=== PATIENT | male | born 1945 | race Caucasian/White ===

== ENCOUNTER → 2017-06-21 07:31 | Outpatient (CLI) | payer OTHER, SELFPAY ==
--- NOTE | 2017-06-21 07:34 | US_ITS ---
STUDY: ABDOMINAL ULTRASOUND - RIGHT UPPER QUADRANT REASON FOR VISIT: Male, 71 years old. 3 month history of abdominal pain. TECHNIQUE: Ultrasound evaluation of the right upper quadrant was performed with real-time and static herron-scale imaging. TECHNICAL QUALITY: Adequate. COMPARISON: None. FINDINGS: Liver: The liver is mildly enlarged and measures 18.7 cm. There is increased echogenicity consistent with fatty infiltration. The bile ducts are within normal limits. There is hepatic color flow. The direction of portal flow is hepatopetal. There is no demonstrated mass lesion. Gallbladder: Normal distended gallbladder. The gallbladder wall measures 3.2 mm. There is a positive sonographic Pham's sign. There is no pericholecystic fluid. There are multiple echogenic structures within the gallbladder, consistent with multiple gallstones. Sludge is seen within the gallbladder lumen. Common Bile Duct (C.B.D.): The common bile duct measures 5.4 mm. Pancreas: Normal size of the head, body and tail of the pancreas. There is normal echogenicity of the pancreas. There is no demonstrated pancreatic mass or cyst. Right Kidney: Normal size of the right kidney. The right kidney measures 12.4 cm x 5.3 cm x 5.5 cm. Normal renal cortex. The right cortex measures 1.9 cm. There is no demonstrated renal mass or cyst. There is no right hydronephrosis. US/Abdomen Limited IMPRESSION: Mild hepatomegaly with fatty infiltration of the liver. Sludge and gallstones seen in the gallbladder lumen. Electronically Signed: Richard Greenberg MD at 10:04 EDT Tel [phone], Service support ,
== END ==
PROVIDERS: Family Provider Family Medicine; PCP Family Medicine; Visit Provider Nurse Practitioner Family
DX: R10.11 Right upper quadrant pain (principal)
CPT/HCPCS: 76705

== ENCOUNTER 2017-06-22 16:50 | Inpatient (IN) | payer OTHER, SELFPAY ==
[2017-06-22 16:51] VITALS: BP 162/83; PULSE 96; RESP 16; TEMP 37.7; O2SAT 93; BMI 31.7
[2017-06-22 17:41] LABS: Squamous Epithelial Cells - UA 0 SEEN /hpf (0-5); White Blood Cells 0 SEEN /hpf (0-5)
[2017-06-22 17:50] LABS: Absolute Lymphocyte Count 1.15 X10^3/ul (0.83-4.51); Basophil# 0.02 X10^3/uL; Basophil% 0.1 % (0-1); Eosinophil# 0.06 X10^3/uL; Eosinophils% 0.4 % (0-5); Hematocrit 46.6 % (40-54); Lymphocyte # 1.15 X10^3/ul (4.0); Lymphocyte % 7.5 % (19-41); Mean Corp Hgb Conc 34.3 g/gl (32-36); Mean Corpuscular Volume 90.3 fL (80-94); Mean Platelet Vol. 10.1 fl (6.2-12.0); Monocyte# 1.11 X10^3/uL; Monocyte% 7.2 % (0-10); Neutrophil # 13.04 X10^3/uL (2.7-7.7); Neutrophil % 84.7 % (47-70); Platelet Count 229 K/mm3 (150-450); RBC Distribution Width SD 42.6 fl (35.1-43.9); Red Blood Count 5.16 M/mm3 (4.6-6.2); White Blood Count 15.4 K/mm3 (4.4-11.0)
[2017-06-22 17:52] LABS: Anion Gap 8 (5-15); BUN 10 mg/dL (7-18); BUN/Creat Ratio 10.2 RATIO (10-20); Calcium,Total 8.3 mg/dL (8.5-10.1); Chloride 99 mmol/L (98-107); Creatinine, Serum 0.98 mg/dL (0.70-1.30); EST Glomerular Filtration Rate 80 mL/min (>60); Est Glom Filt Rate - Afr Amer 97 mL/min (>60); Glucose 118 mg/dL (74-106); Potassium 4.1 mmol/L (3.5-5.1); Sodium Level 135 mmol/L (136-145)
[2017-06-22 17:54] LABS: Color, Urine Yellow (Yellow); Glucose, Dipstick NEGATIVE (Normal); Urine Bilirubin Dipstick 1 mg/dL (Negative); Urine Clarity Clear (Clear)
--- NOTE | 2017-06-22 17:54 | US_ITS ---
STUDY: ABDOMINAL ULTRASOUND - RIGHT UPPER QUADRANT REASON FOR VISIT: Male, 71 years old. Right upper quadrant pain. TECHNIQUE: Ultrasound evaluation of the right upper quadrant was performed with real-time and static herron-scale imaging. TECHNICAL QUALITY: Adequate. COMPARISON: June 21, 2017. FINDINGS: Liver: The liver measures 18.3 cm. There is increased echogenicity consistent with fatty infiltration. There is focal sparing adjacent to the gallbladder fossa. The bile ducts are within normal limits. There is hepatic color flow. The direction of portal flow is hepatopetal. There is no demonstrated mass lesion. Gallbladder: Normal distended gallbladder. The gallbladder wall measures 6 mm. There is a positive sonographic Pham's sign. There is pericholecystic fluid. There are multiple echogenic structures within the gallbladder, consistent with multiple gallstones. Common Bile Duct (C.B.D.): The common bile duct measures 6 mm. Pancreas: Normal size of the head, body and tail of the pancreas. There is normal echogenicity of the pancreas. There is no demonstrated pancreatic mass or cyst. Right Kidney: Normal size of the right kidney. The right kidney measures 13.4 cm. Normal renal cortex. The right cortex measures 1.5 cm. There is 1.6 cm cyst. There is no right hydronephrosis. US/Abdomen Limited IMPRESSION: Cholecystitis. Multiple stones with wall thickening and pericholecystic fluid. No biliary dilatation. Electronically Signed: Marko Soto MD at 19:33 EDT , Service support ,
[2017-06-22 17:55] LABS: Ketone-Dipstick 5 mg/dl (Negative); Nitrite-Dipstick Negative (Negative); Occult Blood-Urine 50 /ul (Negative); Protein-Dipstick 30 mg/dl (Negative); Specific Gravity, Urine 1.015 (1.002-1.030); Urine Urobilinogen 12 mg/dl (Normal); Urine pH 6.5 (5.0 - 8.0)
[2017-06-22 17:56] LABS: POSITIVE COUNT NO; POSITIVE DIFFERENTIAL NO; POSITIVE MORPHOLOGY NO
[2017-06-22 17:56] LABS: Leukocyte Esterase-Dipstick 25 /ul (Negative); Red Blood Cells-Urine 0-5 SEEN /hpf (0-5)
[2017-06-22 17:57] LABS: Amorphous Sediment 1+; Bacteria 1+ /hpf (None Seen); Mucous, Urine RARE /hpf (<or=2+)
[2017-06-22] MEDS: Ondansetron 4 MG/2 ML Vial IV (18:12)
[2017-06-22] MEDS: 0.9% Normal Saline 1,000 ML 1000 ML IV (18:12)
[2017-06-22] MEDS: Morphine 4 MG/ML Syringe IV (18:13)
--- NOTE | 2017-06-22 18:32 | ED.DCSUM_ITS ---
- ER Visit Summary Date of Service: 06/22/17 Chief Complaint: Abdominal pain History of Present Illness: The patient is a 71 M presents to the emergency department with abdominal pain. The patient is otherwise healthy. He states that over the past 3 days, has been having some intermittent abdominal pain. It got worse Tuesday night into Tuesday morning. He states that woke him from sleep. It was a sharp stabbing sensation throughout his abdomen worse in his right upper quadrant. He went to [facility]. He states they did a CAT scan which was unremarkable. She was discharged with analgesics. He followed up with his primary care physician later that day. He was scheduled an ultrasound yesterday. He states this was completed. Since then, the pain is worsened. It is now gone into his right upper shoulder. He has began to have fevers and vomiting. He also admits to chills and sweats. He does have history of prior appendectomy when he was 15 years old. He denies any abdominal surgery. He does not take any daily medications. Physical Examination: Vital signs reviewed General: Well-nourished, well-developed Head: Normocephalic, atraumatic Eyes: Pupils equal and reactive, extraocular muscles intact Neck, supple, no lymphadenopathy Heart: Regular rate and rhythm Respiratory: No distress, clear bilaterally Abdomen: Soft, tender in the right upper quadrant with positive Pham sign, nondistended, no peritoneal signs Back: Nontender Extremities: Nontender, no edema, no cords Skin: Normal color no rash Neuro: Alert and oriented, no focal or lateralizing deficits Test Results: [] Emergency Department Course and Treatment: The patient has symptoms that are consistent with acute cholecystitis. IV was established. Patient was given analgesics with marked improvement of his pain. Screening labs do demonstrate leukocytosis and elevated bilirubin. I did repeat his ultrasound which does show acute cholecystitis. The patient was covered with IV antibiotics. Patient was discussed with Dr. Mason who will evaluate the patient here in the emergency department. Treatment Plan: [] Disposition: Admission Impression:. Acute cholecystitis This note was generated with [employer] dictation software. It may contain incorrect words, spelling, and punctuation that were not noted in review of the chart prior to signing ED Disposition - Plan for ED Patient: Chief Complaint: Abd Pain Referrals: Ulices Mahoney [Primary Care Provider] -
[2017-06-22 19:38] LABS: AST(SGOT) 25 U/L (15-37); Alanine Aminotransfer ALT/SGPT 34 U/L (16-61); Albumin, Serum 3.3 g/dL (3.2-5.0); Alkaline Phosphatase 61 U/L (45-117); Globulin 4.7 g/dL (2.2-4.2); Lipase 50 U/L (73-393)
[2017-06-22 19:41] VITALS: BP 143/86; PULSE 84; RESP 16; O2SAT 94
--- NOTE | 2017-06-22 19:42 | EKG12_ITS ---
Test Reason : PRE-OP Blood Pressure : / mmHG Vent. Rate : 081 BPM Atrial Rate : 081 BPM P-R Int : 154 ms QRS Dur : 104 ms QT Int : 384 ms P-R-T Axes : 014 -23 -03 degrees QTc Int : 446 ms Normal sinus rhythm Leftward axis Poor R wave progression Confirmed by MUNDO STILL, ABELARDO ([id number]), state editor KARLEY LEONARDO ([id number]) on 06/28/2017 3:10:48 PM Referred By: Ulices Mahoney Confirmed By:ABELARDO FLOWER MD
--- NOTE | 2017-06-22 19:45 | RAD_ITS ---
STUDY: X-RAY CHEST REASON FOR EXAM: Male, 71 years old. Abdominal pain TECHNIQUE: Single AP portable view of the chest. COMPARISON: None. FINDINGS: Left lower lung increased densities. There is pleural fibrotic scarring of the left costophrenic angle. There is moderate cardiac enlargement. Normal mediastinum and gama. Normal visualized pulmonary arteries. Normal visualized aortic arch and descending thoracic aorta. Normal visualized thoracic spine. Normal visualized ribs, clavicles, and shoulders. There is no demonstrated abnormality of the visualized soft tissue structures of the upper abdomen. RAD/Chest 1 View (Portable) IMPRESSION: Left lower lung atelectasis or infiltrate. Cardiac enlargement. Electronically Signed: Marko Soto MD at 20:36 EDT , Service support ,
--- NOTE | 2017-06-22 20:34 | PCM.HP.STD ---
Problem List (1) Acute calculous cholecystitis Status: Acute History of Present Illness Date of Admission: 06/22/17 The patient is a 71 year old M who presents to the emergency room now with a four-day history of severe right upper quadrant pain. The pain started on Tuesday evening. He presented to [facility] at 3:30 in the morning on Tuesday. A CT scan was obtained demonstrating inflammation/panniculitis of undetermined etiology. The patient was given oral narcotics and told to follow-up with primary care. That same day he saw Lito Mahoney. A ultrasound was ordered as an outpatient the [facility] then 2 days later today for 2017. The final report Straits fatty infiltration of the liver. Normal bile ducts. Gallbladder wall is markedly thickened 6 mm. Positive sonographic Pham sign. Pericholecystic fluid. Gallstones. Common bile duct is 6 mm. Addition the patient has leukocytosis 15.4 thousand white count. Hemoglobin 16 and hematocrit 46.6. Platelet count 229,000. Scant left shift with 84.7% neutrophils. total bilirubin is elevated to 2.4 with a direct bilirubin 0.8. Analysis abnormal with urobilinogen and oxide esterase and occult blood and ketones. Specific gravity is 1.015. The patient has not been able to move his bowels since Tuesday. He is essentially been on clear liquids now for 3 days. He developed a fever today of at least 99-100 at home. To complicate features he has had a very long-term umbilical hernia with very thin skin and erythema of the skin. He has had a remote appendectomy performed via an open technique Vision the patient has a brother who at age 60 had colon cancer. The patient has never had a screening colonoscopy. Past Medical History Allergies No Known Allergies Allergy (Verified 06/22/17 16:57) Home Medications: Ambulatory Orders Medication Instructions Recorded Ondansetron HCl [Zofran] 4 mg PO Q6H PRN PRN 06/22/17 Oxycodone [Oxyir] 5 mg PO Q6H PRN PRN 06/22/17 Surgical History: appendectomy, total knee arthroplasty, tonsillectomy Lives: Spouse/ Significant Other Smoking Status: Never smoker Tobacco Use: Non-smoker Alcohol: None - *Family History Sibling History Items: - - Brother had colon cancer at age 60 Review of Systems Constitutional: Reports: Anorexia, Chills, Fever, Night Sweats Eyes: Denies: Blurred vision HEENT: Denies: Difficulty Hearing Cardiovascular: Denies: Chest Pain, Claudication Respiratory: Denies: Cough Gastrointestinal: Reports: Abdominal Pain, Constipation, Vomiting Genitourinary: Denies: Dysuria Musculoskeletal: Denies: Arm Pain Skin: Denies: Dryness Neurological: Denies: Balance problems Psychiatric: Denies: Anxiety Endocrine: Denies: Change in Body Habitus Hematologic/ Lymphatic: Denies: Adenopathy VTE Information - Inpt Only VTE Present on Admission: No Patient Problems: Active and Suspected Problems Acute calculous cholecystitis (Acute) - Physical Exam General: Alert, Oriented x3, Cooperative, No apparent distress HEENT: Atraumatic Oral: Moist Mucosa Neck: Supple Lungs: - - Lung apices are clear, diminished breath sounds in the bases Cardiovascular: Regular rate, Regular Rhythm Abdomen: Bowel Sounds Not Present, Distended, Tender - Tender in the right upper quadrant, - - Overweight very large umbilical hernia with thinning of the skin and erythema. Fixed 2 cm diameter fascial defect. Partially reducible Extremities: No clubbing Skin: No rashes Musculoskeletal: No Tenderness to Palpation of Joints or Extremities Lymphatic: No Cervical, Supraclavicular, or Inguinal Adenopathy Neurological: Cranial nerves II-XII grossly intact Psych/Mental Status: Normal Affect Vital Signs Temp Pulse Resp BP Pulse Ox 99.8 F H 84 16 143/86 H 94 06/22/17 16:51 06/22/17 19:41 06/22/17 19:41 06/22/17 19:41 06/22/17 19:41 Oxygen Delivery Method Room Air Weight: 202 lb 9.677 oz Body Mass Index (BMI) 31.7 Laboratory Tests Past 24 Hrs 06/22/17 06/22/17 06/22/17 17:18 17:18 17:18 WBC 15.4 H RBC 5.16 Hgb 16.0 Hct 46.6 MCV 90.3 MCH 31.0 MCHC 34.3 RDW 13.0 RDW Differential 42.6 Plt Count 229 MPV 10.1 Immature Gran % (Auto) 0.100 Neut % (Auto) 84.7 H Lymph % (Auto) 7.5 L [place] % (Auto) 7.2 Eos % (Auto) 0.4 Baso % (Auto) 0.1 Absolute Neuts (auto) 13.0 H Absolute Lymphs (auto) 1.15 Total Counted Not Reportable Sodium 135 L Potassium 4.1 Chloride 99 Carbon Dioxide 28.0 Anion Gap 8 BUN 10 Creatinine 0.98 Estim Creat Clear Calc 63.70 Est GFR (MDRD) Af Amer 97 Est GFR (MDRD) Non-Af 80 BUN/Creatinine Ratio 10.2 Glucose 118 H Calcium 8.3 L Total Bilirubin 2.40 H Direct Bilirubin 0.80 H AST 25 ALT 34 Alkaline Phosphatase 61 Total Protein 8.0 Albumin 3.3 Globulin 4.7 H Lipase 50 L Urine Color Urine Clarity Urine pH Ur Specific [place] Urine Protein Urine Glucose (UA) Urine Ketones Urine Occult Blood Urine Nitrite Urine Bilirubin Urine Urobilinogen Ur Leukocyte Esterase Urine RBC Urine WBC Ur Squamous Epith Cells Amorphous Sediment Urine Bacteria Urine Mucus 06/22/17 17:22 WBC RBC Hgb Hct MCV MCH MCHC RDW RDW Differential Plt Count MPV Immature Gran % (Auto) Neut % (Auto) Lymph % (Auto) [place] % (Auto) Eos % (Auto) Baso % (Auto) Absolute Neuts (auto) Absolute Lymphs (auto) Total Counted Sodium Potassium Chloride Carbon Dioxide Anion Gap BUN Creatinine Estim Creat Clear Calc Est GFR (MDRD) Af Amer Est GFR (MDRD) Non-Af BUN/Creatinine Ratio Glucose Calcium Total Bilirubin Direct Bilirubin AST ALT Alkaline Phosphatase Total Protein Albumin Globulin Lipase Urine Color Yellow Urine Clarity Clear Urine pH 6.5 Ur Specific [place] 1.015 Urine Protein 30 H Urine Glucose (UA) NEGATIVE Urine Ketones 5 H Urine Occult Blood 50 H Urine Nitrite Negative Urine Bilirubin 1 H Urine Urobilinogen 12 H Ur Leukocyte Esterase 25 H Urine RBC 0-5 SEEN Urine WBC 0 SEEN Ur Squamous Epith Cells 0 SEEN Amorphous Sediment 1+ Urine Bacteria 1+ Urine Mucus RARE Assessment/Plan Active and Suspected Problems Acute calculous cholecystitis (Acute) 71-year-old gentleman who is now 4 days into acute cholecystitis cholelithiasis. He now is demonstrating signs with fever and leukocytosis and abdominal pain and abnormal liver function tests. In addition he has a significant umbilical hernia thinning of the skin and affixed fascial defect. Family history of colon cancer no previous screening 4 days ago had a CT scan demonstrating inflammation of the omentum. This point I believe that he requires urgent hospitalization initiation of IV fluid and IV antibiotics. After discussion with Dr. Facundo Woodruff it was recommended that we not proceed with emergency surgery tonight. I have discussed with nurse supervisor metalizing and at this moment a definitive surgery time for tomorrow cannot be estimated. I have vigorously encouraged the patient to ambulate and work on incentive spirometer. We will treat with antibiotics. I discussed with patient and family members a planned attempt at left scopic cholecystectomy with selective cholangiography. They are aware of the technique, benefits, risks and alternatives. They are aware that possible conversion to an open technique or a partial cholecystectomy may have to be pursued. They are aware of possible intraoperative drainage. I anticipate a supraumbilical incision to avoid the complicated umbilical hernia currently present. I am recommending future repair of his umbilical hernia and future colonoscopy. Sae Mason M.D., F.A.C.S.
[2017-06-22 20:36] VITALS: BP 138/79; PULSE 78; RESP 18; O2SAT 98
[2017-06-22 22:07] VITALS: BP 140/69; PULSE 81; RESP 16; TEMP 37.6; O2SAT 94; BMI 32.1; BMI 32.2
[2017-06-22 22:08] VITALS: BP 153/71
[2017-06-22] MEDS: Lactated Ringers 1,000 ML 100 ML IV (22:43)
[2017-06-22 23:01] VITALS: BMI 32.1
[2017-06-23] VITALS (9 sets, daily range): BP systolic 114–145; BP diastolic 63–75; PULSE 69–80; RESP 16–18; TEMP 36.4–37.2; O2SAT 92–95; BMI 32.2
[2017-06-23] MEDS: Piperacil/Tazobactam 3.375 GM/50 ML ML IV ×3 (05:06→22:06)
[2017-06-23 05:29] LABS: Absolute Neutrophil Count 11.3 X10^3/uL (2.0-7.7); Basophil# 0.02 X10^3/uL; Basophil% 0.1 % (0-1); Eosinophil# 0.12 X10^3/uL; Eosinophils% 0.9 % (0-5); Hematocrit 41.1 % (40-54); Lymphocyte % 6.6 % (19-41); Mean Corp Hgb Conc 34.1 g/gl (32-36); Mean Corpuscular Hgb 30.9 pg (27.0-32.0); Mean Corpuscular Volume 90.7 fL (80-94); Mean Platelet Vol. 9.8 fl (6.2-12.0); Monocyte# 1.25 X10^3/uL; Monocyte% 9.2 % (0-10); Neutrophil # 11.27 X10^3/uL (2.7-7.7); Neutrophil % 82.9 % (47-70); Platelet Count 209 K/mm3 (150-450); RBC Distribution Width CV 12.7 % (11.6-14.6); RBC Distribution Width SD 41.9 fl (35.1-43.9); Red Blood Count 4.53 M/mm3 (4.6-6.2); White Blood Count 13.6 K/mm3 (4.4-11.0)
[2017-06-23 05:33] LABS: POSITIVE COUNT NO; POSITIVE DIFFERENTIAL NO; POSITIVE MORPHOLOGY NO
[2017-06-23 05:45] LABS: ALB/GLOB Ratio 0.7 RATIO (0.9-2.4); AST(SGOT) 23 U/L (15-37); Alanine Aminotransfer ALT/SGPT 29 U/L (16-61); Albumin, Serum 2.7 g/dL (3.2-5.0); Alkaline Phosphatase 56 U/L (45-117); Amylase 16 U/L (25-115); Anion Gap 7 (5-15); BUN 10 mg/dL (7-18); BUN/Creat Ratio 11.4 RATIO (10-20); Calcium,Total 7.8 mg/dL (8.5-10.1); Chloride 103 mmol/L (98-107); Creatinine, Serum 0.88 mg/dL (0.70-1.30); EST Glomerular Filtration Rate 91 mL/min (>60); Est Glom Filt Rate - Afr Amer 110 mL/min (>60); Estimated Creatinine Clearance 70.94 ml/min; Globulin 3.9 g/dL (2.2-4.2); Glucose 105 mg/dL (74-106); Potassium 4.1 mmol/L (3.5-5.1); Protein, Total 6.6 g/dL (6.4-8.2); Sodium Level 138 mmol/L (136-145)
--- NOTE | 2017-06-23 05:51 | PCM.PN.SRG ---
Patient Problems: Active and Suspected Problems Acute calculous cholecystitis (Acute) Subjective: Mild fever over night. Abdominal pain is improved. No flatus, no stool - Physical Exam Lungs: - - diminished in bases, tender RUQ Vital Signs Temp Pulse Resp BP Pulse Ox 98.9 F 74 16 143/70 H 94 06/23/17 03:30 06/23/17 03:30 06/23/17 03:30 06/23/17 03:30 06/23/17 03:30 Oxygen Delivery Method Room Air Weight: 205 lb 7.533 oz Body Mass Index (BMI) 32.1 Intake and Output for Last 24 Hours 06/21/17 06/22/17 06/23/17 23:59 23:59 23:59 Intake Total 154.6 / 154.6 540.3 / 540.3 Balance 154.6 / 154.6 540.3 / 540.3 Laboratory Tests Past 24 Hrs 06/23/17 06/23/17 05:05 05:05 WBC 13.6 H RBC 4.53 L Hgb 14.0 Hct 41.1 MCV 90.7 MCH 30.9 MCHC 34.1 RDW 12.7 RDW Differential 41.9 Plt Count 209 MPV 9.8 Immature Gran % (Auto) 0.300 Neut % (Auto) 82.9 H Lymph % (Auto) 6.6 L [place] % (Auto) 9.2 Eos % (Auto) 0.9 Baso % (Auto) 0.1 Absolute Neuts (auto) 11.3 H Absolute Lymphs (auto) 0.90 Total Counted Not Reportable Sodium 138 Potassium 4.1 Chloride 103 Carbon Dioxide 28.0 Anion Gap 7 BUN 10 Creatinine 0.88 Estim Creat Clear Calc 70.94 Est GFR (MDRD) Af Amer 110 Est GFR (MDRD) Non-Af 91 BUN/Creatinine Ratio 11.4 Glucose 105 Calcium 7.8 L Total Bilirubin 2.90 H AST 23 ALT 29 Alkaline Phosphatase 56 Total Protein 6.6 Albumin 2.7 L Globulin 3.9 Albumin/Globulin Ratio 0.7 L Amylase 16 L Medical Necessity - Tobacco Use Smoking Status: Never smoker Tobacco Use: Non-smoker Assessment/Plan Active and Suspected Problems Acute calculous cholecystitis (Acute) Plan OR today pending schedule Pt higher risk Pt has not ambulated. Will reorder and I have again instructed the pt on the importance of this.
--- NOTE | 2017-06-23 07:30 | GALL_PTH ---
PATIENT: GEORGIA MCKEON LOC: PCU U#:[id number] AGE/SX: 71/M ROOM: [facility] RE06/22/[address]: Dr. Sae Mason MD : [id number] BED: 1 DIS: 06/24/2017 SPEC #: [id number] RECD: 06/24/17 09:09 STATUS: EVELYN RETyra #: [id number] MAKI: 06/23/17 07:[address]: Sae Mason DEPT: SURGICAL PATHOLOGY RECD BY: Lalo Posada ENTERED: 06/24/17 10:56 SP TYPE: ROSALINDA TIM DR: Ulices Mahoney Tissues: Gallbladder, NOS Procedures: Surgery Specimen Level III HEADER OPERATION: Laparoscopic cholecystectomy with intraoperative cholangiogram PRE-OP DIAGNOSIS: Acute calculus cholecystitis TISSUE SUBMITTED: Gallbladder MICROSCOPIC DIAGNOSIS Gallbladder, cholecystectomy: Acute and chronic cholecystitis with mucosal ulceration and granulation. AM:nicole 06/27/17 MICROSCOPIC DESCRIPTION Slides are reviewed. GROSS DESCRIPTION Received is one container labeled with the patient's name and designated gallbladder. The specimen consists of a gallbladder measuring 11 cm in length and 5 cm in diameter. The serosal surface is congested and hemorrhagic. The gallbladder is filled with multiple blood clots. The mucosa is congested and hemorrhagic without any mass lesion. Sections of the gallbladder wall reveal congested and hemorrhagic cut surfaces. No stones are identified in the container or in the gallbladder. The gallbladder wall measures up to 1 cm in thickness. Also present in the container is a detached piece of adipose tissue consistent with omentum measuring 8 x 3 x 1 cm. Sections reveal focally congested cut surfaces. No mass lesion is identified. [employer] Instructor sections from the gallbladder and the cystic duct are submitted in three cassettes as follows: 1 & 2 ? gallbladder and cystic duct, 3 ? adipose tissue. / SJ:nicole 06/24/17 TC:2 CPT: 69649
[2017-06-23] MEDS: Morphine 2 MG/ML Syringe IV ×2 (09:18→20:03)
[2017-06-23] MEDS: Lactated Ringers 1,000 ML 100 ML IV ×2 (09:18→22:06)
--- NOTE | 2017-06-23 10:28 | CASEMGMT ---
CM Initial Assessment: Patient's daughter, Carmina Schneider, present for interview. Patient has several friends/family at the bedside visiting. Home: Patient lives with and family in a two story home. HHS/Aides: Never. DME: Denies DME needs prior to admission. Pharmacy: [facility] in [place] Providers: PCP - Ulices Guaman. Specialists: None, though he plans to see Dr. Bowles for pulmonology. Adv. Directives: Denies having LW/POA. Refuses assistance at this time. CM will continue to follow for effective discharge planning. No needs identified at this time.
--- NOTE | 2017-06-23 10:55 | NURSING ---
Patient ambulated 2 large laps around the hallways this morning 2 times.
--- NOTE | 2017-06-23 14:11 | PCM.DC.GS ---
Discharge Diet: Light diet - advance as tolerated - if you have questions about your diet instructions, please talk to you doctor. Discharge Activity: May Not Drive - for 1 week or while taking narcotic pain medicine. May shower in (days): 1 Lifting Restrictions: 10 pounds Call your doctor if your incision/area has: Continuous Slow Oozing, Sudden Increased Bleeding, Increased Pain/ Swelling, Increased Redness, Foul Smelling Discharge Call your doctor if you observe: Fever of 101 or Higher Suture Line Care: Avoid Pulling/Pushing, Avoid Pinching/Bending Additional Dressing/Incision Instructions:: Change or remove dressing in 4 days. Leave steri-strips in place for 1 week. You may shower on Tuesday. Leave the plastic dressings in place and shower over them. The drain site dressing you may remove and then shower and then cover that small wound with a Band-Aid Additional Instructions: Augmentin has been added to your home going medications please Allergies/Adverse Reactions: Allergies No Known Allergies Allergy (Verified 06/22/17 16:57) Medications to take at Discharge Garlic [Odor Free Garlic] 100 mg PO 06/22/17 Ondansetron HCl [Zofran] 4 mg PO Q6H PRN PRN 06/22/17 Oxycodone [Oxyir] 5 mg PO Q6H PRN PRN 06/22/17 Amoxicillin/Potassium Clav [Augmentin 875-125 Tablet] 1 ea PO BID #6 tab 06/24/17 The following prescriptions were given: Amoxicillin/Potassium Clav [Augmentin 875-125 Tablet] 1 ea PO BID #6 tab Primary Care Physician: Ulices Mahoney [Primary Care Provider] - Please Follow Up With: Sae Mason MD - [phone] When: Call to make an appointment to be seen in about 10 days.
[2017-06-23] MEDS: Bupivacaine Mpf 0.5% 30 ML VIAL (16:20)
--- NOTE | 2017-06-23 16:27 | OP.PCM_ITS ---
Problem List (1) Acute calculous cholecystitis Status: Acute Report of Operation Date of Procedure: 06/23/17 Pre-Operative Diagnosis: Severe acute cholecystitis cholelithiasis with delayed presentation Post-Operative Diagnosis: Same plus hydrops of the gallbladder Surgery/Procedure Performed:: Laparoscopic cholecystectomy Description of Surgical Findings:: Timeout and informed consent was obtained. 71-year-old gent was taken out from placement table underwent general endotracheal intubation and anesthesia.. He is already on therapeutic Zosyn because of severe infection. His abdomen was sterilely prepped and draped. 0.5% Marcaine was used as a local anesthetic. The patient has a very large umbilical hernia with thin skin. I elected not to try to deal with that at the same setting of acute infection. I made a transverse incision superior to the umbilicus sharp dissection was carried down through the substance tissue the linea alba was identified a small incision was created varies needle inserted saline drop test performed the abdomen was insufflated CO2 to pressure 15 mmHg mercury pressure. Ara laparoscope inserted after 12 m trocar insertion no evidence of any trocar injuries. The abdomen is inspected. There is distention of small bowel consistent with ileus. There was dramatic caking of omentum completely obliterating access to the gallbladder. There is no significant free fluid immediately identified. Five-minute trochars were placed in the epigastrium right upper quadrant and right lateral abdomen. First step was to try to dissect free the omentum that was adherent to the liver and gallbladder. I used electrified scissors to incise the omentum off the dome of the gallbladder then I was able to using sharp and blunt dissection free the omentum from the gallbladder. Gallbladder was markedly thickened. Densely adherent during efforts made to raise the gallbladder small opening was made and it was evident that the patient had drops of the gallbladder with clear bile. There was some purulence. No stones spillage. The gallbladder was then progressively elevated. I had put a liver retractor in to assist with visualization by holding the duodenal sweep inferiorly as I continued to use blunt and aqua dissection close to the infundibular area of the gallbladder. Finding and tediously I was able to dissect that free. At this point I elected to take a dome down approach. I incised the gallbladder circumferentially at the gallbladder peritoneum edge with the liver and then using a combination of Hope dissection cautery dissection and blunt dissection I gradually teased the gallbladder free from the liver. I then utilized the liver retractor to hold the liver up will continue to mobilize the gallbladder distally. In so doing I then was able to identify the cystic artery. I was able to identify this clearly I placed 2 Hem- o-alvaro clips proximally prior to transecting it. This now left knee only with the cystic duct. It is of note that I did not attempt a cholangiogram as the bile was white and consistent with cystic duct obstruction. There was a phrygian cap to the gallbladder and then right below that was an area that I could secure. I felt that this was free from the portal structures. I then tediously placed a 0 Vicryl Endoloop and immediately at the base of the very gallbladder I secured the Endoloop snuggly. I felt that I had very good positioning of that. I then transected the lower half of the infundibular area of the gallbladder leaving a slight cough so as to not disrupt my suture. There was no spillage. I was then able to put the gallbladder within a retrieval bag. There was some adherent necrotic omentum that I dissected free hemostasis obtained with electrocautery and that specimen was also retrieved. The right upper quadrant then was irrigated and aspirated free of excess fluid. Because of the blunt and cautery dissection of the liver I elected to leave a EMELINA drain. Dissection utilized today was very extensive involving mobilized the omentum off the gallbladder and then more mobilized to the gallbladder from the liver bed. I was able to place the gallbladder in a retrieval bag and then 6 and I placed the EMELINA drain 15 round through the right lateral abdominal port site. The drain was trimmed to length. Secured with 3-0 nylon. The gallbladder was then exited at the supraumbilical site I did have to enlarge that incision to the dramatic size and thickness of the gallbladder. The gallbladder and extra portion of omentum was successfully removed. The abdomen was then allowed to deflate of CO2. The fascia superior the umbilicus was approximated with multiple simple and [id number] sutures of 0 Nurolon. Skin edges were approximated with interrupted 4-0 Monocryl. Steri-Strips Telfa OpSite dressings applied. Sponge instrument and needle counts were reported to the surgeon to be correct. Tomato blood loss was 200 cc. Specimens include the gallbladder and a portion of the adherent omentum. No apparent complications. This was a operation of marked increased complexity and duration taking 2-1/2 hours of operating time. Patient was taken to the recovery area in satisfactory condition. Sae Mason M.D., F.A.C.S. Type of Anesthesia:: General Anesthesiologist: Michelle Alva
[2017-06-23] MEDS: 0.9% NaCl Peripheral Flush Adult/Peds IV (20:03)
--- NOTE | 2017-06-24 01:47 | NURSING ---
Patient has been up to the restroom 3 times - ambulated well. Patient felt steady and did not have any increased pain. Patient up to television and sink. However, declined sitting in the chair. Family present in room and patient did not want to take away from the family. Patient did sit at side of the bed for 15 minutes.
[2017-06-24 03:30] VITALS: BP 130/64; PULSE 63; RESP 16; TEMP 36.5; O2SAT 96; BMI 32.2
[2017-06-24 03:38] VITALS: O2SAT 96
--- NOTE | 2017-06-24 03:51 | NURSING ---
Patient ambulated in halls at this time with aide. Pt tolerated well. Surgical sites c/d/i. Pt rates pain at this time as a 1. Denies any need for PRN pain management at this time.
[2017-06-24] MEDS: Piperacil/Tazobactam 3.375 GM/50 ML ML IV ×2 (05:35→13:02)
--- NOTE | 2017-06-24 05:51 | PCM.PN.SRG ---
Patient Problems: Active and Suspected Problems Acute calculous cholecystitis (Acute) Subjective: Patient is 1 day status post very challenging laparoscopic cholecystectomy. He has not had flatus but he feels rumbling in his belly. His pain is only a 1-2. He denies nausea. - Physical Exam General: Alert, Oriented x3, Cooperative, No apparent distress Lungs: Clear to auscultation Abdomen: Bowel Sounds Present, Soft, Non Tender, - - EMELINA drain serosanguineous drainage. No evidence of biliary discharge Vital Signs Temp Pulse Resp BP Pulse Ox 97.7 F L 63 16 130/64 H 96 06/24/17 03:30 06/24/17 03:30 06/24/17 03:30 06/24/17 03:30 06/24/17 03:38 Oxygen Flow Rate (L/min) 2 Oxygen Delivery Method Room Air Weight: 205 lb 7.533 oz Body Mass Index (BMI) 32.1 Intake and Output for Last 24 Hours 06/22/17 06/23/17 06/24/17 23:59 23:59 23:59 Intake Total 154.6 / 154.6 3650.3 / 3650.3 Output Total 60 / 60 Balance 154.6 / 154.6 3590.3 / 3590.3 -20 / 20 Laboratory Tests Past 24 Hrs 06/24/17 06/24/17 05:26 05:26 WBC Pending RBC Pending Hgb Pending Hct Pending MCV Pending MCH Pending MCHC Pending RDW Pending RDW Differential Pending Plt Count Pending Neut % (Auto) Pending Absolute Neuts (auto) Pending Total Counted Pending Sodium Pending Potassium Pending Chloride Pending Carbon Dioxide Pending Anion Gap Pending BUN Pending Creatinine Pending Est GFR (MDRD) Af Amer Pending Est GFR (MDRD) Non-Af Pending BUN/Creatinine Ratio Pending Glucose Pending Calcium Pending Total Bilirubin Pending Direct Bilirubin Pending AST Pending ALT Pending Alkaline Phosphatase Pending Total Protein Pending Albumin Pending Medical Necessity - Tobacco Use Smoking Status: Never smoker Tobacco Use: Non-smoker Assessment/Plan Active and Suspected Problems Acute calculous cholecystitis (Acute) EMELINA drain was removed for him today. We will initiate clear liquids and advance as tolerated. I am awaiting laboratory. Possible discharge later today
[2017-06-24 06:08] LABS: AST(SGOT) 51 U/L (15-37); Alanine Aminotransfer ALT/SGPT 47 U/L (16-61); Albumin, Serum 2.4 g/dL (3.2-5.0); Alkaline Phosphatase 60 U/L (45-117); Anion Gap 7 (5-15); BUN 13 mg/dL (7-18); Bilirubin, Direct 0.39 mg/dL (0.00-0.30); Calcium,Total 8.2 mg/dL (8.5-10.1); Chloride 106 mmol/L (98-107); Creatinine, Serum 0.76 mg/dL (0.70-1.30); EST Glomerular Filtration Rate 106 mL/min (>60); Est Glom Filt Rate - Afr Amer 129 mL/min (>60); Estimated Creatinine Clearance 62.43 ml/min; Globulin 4.2 g/dL (2.2-4.2); Glucose 154 mg/dL (74-106); Protein, Total 6.6 g/dL (6.4-8.2); Sodium Level 140 mmol/L (136-145)
[2017-06-24 06:14] LABS: Basophil# 0.01 X10^3/uL; Basophil% 0.1 % (0-1); Hematocrit 39.1 % (40-54); Hemoglobin 13.2 g/dl (13.0-16.5); Lymphocyte % 4.6 % (19-41); Mean Corp Hgb Conc 33.8 g/gl (32-36); Mean Corpuscular Hgb 30.5 pg (27.0-32.0); Mean Corpuscular Volume 90.3 fL (80-94); Mean Platelet Vol. 9.7 fl (6.2-12.0); Monocyte# 0.56 X10^3/uL; Monocyte% 4.3 % (0-10); Neutrophil # 11.95 X10^3/uL (2.7-7.7); Neutrophil % 90.8 % (47-70); Platelet Count 229 K/mm3 (150-450); RBC Distribution Width CV 12.6 % (11.6-14.6); RBC Distribution Width SD 41.2 fl (35.1-43.9); Red Blood Count 4.33 M/mm3 (4.6-6.2); White Blood Count 13.1 K/mm3 (4.4-11.0)
[2017-06-24 06:16] LABS: Differential Indicated SCAN CRITERIA MET; POSITIVE COUNT NO; POSITIVE DIFFERENTIAL YES; POSITIVE MORPHOLOGY NO
[2017-06-24] MEDS: Lactated Ringers 1,000 ML 15 ML IV (06:19)
[2017-06-24 07:00] LABS: Differential Comment SCANNED
[2017-06-24 07:20] VITALS: BMI 32.2
[2017-06-24 07:30] VITALS: BP 119/62; PULSE 63; RESP 18; TEMP 36.6; O2SAT 92
[2017-06-24 12:58] VITALS: BP 133/73; PULSE 63; RESP 18; TEMP 36.6; O2SAT 92
== END 2017-06-24 18:16 | disposition home or self-care (01) | DRG 418 ==
LOC: ED 18:05 → PCU 21:43
PROVIDERS: Admitting Provider Surgery; Emergency Provider Emergency Medicine; Family Provider Nurse Practitioner Family; PCP Nurse Practitioner Family; Visit Provider Surgery
PROC: 0FT44ZZ Resection of Gallbladder, Percutaneous Endoscopic Approach (ICD-10-PCS; CPT 47610; principal; 2017-06-23 07:10)
DX: K80.00 Calculus of gallbladder with acute cholecystitis without obstruction (principal); K82.1 Hydrops of gallbladder; K42.9 Umbilical hernia without obstruction or gangrene
CPT/HCPCS: 36415; 71045; 76705; 80048; 80053; 80076; 81001; 82150; 83690; 85025; 86850; 86900; 87070; 87075; 87077; 87186; 87205; 88304; 93005; 97802; 99282; J7030; J7050; J7120; A4216; J2405

== ENCOUNTER 2017-09-06 05:42 | Day surgery (SDC) | payer OTHER, SELFPAY ==
[2017-09-06] VITALS (9 sets, daily range): BP systolic 117–148; BP diastolic 75–93; PULSE 59–68; RESP 16–18; TEMP 36.4–36.7; O2SAT 91–97
--- NOTE | 2017-09-06 06:56 | PCM.OPRPT ---
Problem List (1) Screening for intestinal cancer Status: Acute Report of Operation Date of Procedure: 09/06/17 Pre-Operative Diagnosis: Screening for intestinal malignancy Post-Operative Diagnosis: Extraordinarily elongated tortuous colon. sigmoid diverticulosis Surgery/Procedure Performed:: Colonoscopy Description of Surgical Findings:: Timeout and informed consent was obtained. 69-year-old gent was taken to the endoscopy suite. He was placed in left lateral decubitus position. Throughout the procedure total of 100 mg Remeron 5 mg of Versed were given as intravenous sedation. Digital rectal exam performed. Lax anal tone. 2+ smooth prostate. Flexible colonoscope inserted the rectum advanced through a very tortuous sigmoid colon extensively involved with diverticulosis. The scope was then carefully advanced to the splenic flexure but I could not advance past the splenic flexure so then I completely withdrew the scope. Reinserted the scope and started the procedure again. This time I could cross the splenic flexure by placing the patient supine was able to advanced through the transverse colon and with some transabdominal pressure into the ascending colon. I ended up just shy of what I thought was ileocecal valve however could not advance the scope further as I felt it was too much tension. Took photographs of the what I felt was a cecal area. The scope was carefully withdrawn. Bowel prep was adequate there was still some liquid stool that had to be aspirated. The scope was withdrawn through a elongated transverse descending and sigmoid colon. No polyps identified. The scope was retroflexed within the rectum anorectal verge inspected no gross hemorrhoidal changes. Excess fluid and air was aspirated free the procedure was completed with patient tolerating it well. Sigmoid diverticulosis. Very elongated tortuous colon Patient has not had a previous screening colonoscopy. Next colonoscopy recommended in 10 years. Cc: Lito Mason M.D., F.A.C.S. Scope was inserted 0628. The cecum was reached at 0647. Procedure was completed 0654. Type of Anesthesia:: IV Sedation
== END 2017-09-06 08:03 | disposition home or self-care (01) ==
LOC: EN 05:44 → AC 05:45
PROVIDERS: Family Provider Nurse Practitioner Family; PCP Nurse Practitioner Family; Visit Provider Surgery
PROC: 0DJD8ZZ Inspection of Lower Intestinal Tract, Via Natural or Artificial Opening Endoscopic (ICD-10-PCS; CPT 45378; principal; 2017-09-06 06:25)
DX: Z12.11 Encounter for screening for malignant neoplasm of colon (principal); K57.30 Diverticulosis of large intestine without perforation or abscess without bleeding; Q43.8 Other specified congenital malformations of intestine; K40.90 Unilateral inguinal hernia, without obstruction or gangrene, not specified as recurrent; K42.9 Umbilical hernia without obstruction or gangrene
CPT/HCPCS: 45378; 99152; 99153; J7120

== ENCOUNTER 2017-09-12 09:17 | Day surgery (SDC) | payer OTHER, SELFPAY ==
[2017-09-06 07:39] LABS: Hematocrit 41.6 % (40-54); Hemoglobin 13.8 g/dl (13.0-16.5); Mean Corp Hgb Conc 33.2 g/gl (32-36); Mean Corpuscular Hgb 29.9 pg (27.0-32.0); Mean Corpuscular Volume 90.2 fL (80-94); Mean Platelet Vol. 9.6 fl (6.2-12.0); Platelet Count 167 K/mm3 (150-450); RBC Distribution Width CV 12.6 % (11.6-14.6); RBC Distribution Width SD 41.4 fl (35.1-43.9); Red Blood Count 4.61 M/mm3 (4.6-6.2); Scan Indicated on CBC? Y/N NO; White Blood Count 5.2 K/mm3 (4.4-11.0)
[2017-09-06 07:50] LABS: Anion Gap 7 (5-15); BUN 10 mg/dL (7-18); BUN/Creat Ratio 11.8 RATIO (10-20); Chloride 108 mmol/L (98-107); Creatinine, Serum 0.85 mg/dL (0.70-1.30); EST Glomerular Filtration Rate 94 mL/min (>60); Est Glom Filt Rate - Afr Amer 114 mL/min (>60); Glucose 111 mg/dL (74-106); Potassium 3.6 mmol/L (3.5-5.1); Sodium Level 141 mmol/L (136-145)
--- NOTE | 2017-09-12 | HERN_PTH ---
PATIENT: GEORGIA MCKEON LOC: [facility] [place] U#:[id number] AGE/SX: 72/M ROOM: RE09/12/[address]: Dr. Sae Mason MD : [id number] BED: DIS: 09/12/2017 SPEC #: [id number] RECD: 09/12/17 16:09 STATUS: EVELYN WHITLEY #: [id number] MAKI: 09/12/17 00:[address]: Sae Mason DEPT: SURGICAL PATHOLOGY RECD BY: Jonatan Bush ENTERED: 09/13/17 08:12 SP TYPE: Hernia OTHR DR: Ulices Mahoney, ASHLIE-Marisela Tissues: HERNIA Procedures: Surgery Specimen Level II HEADER OPERATION: Laparoscopic bilateral inguinal hernia repair with mesh PRE-OP DIAGNOSIS: Bilateral inguinal hernias, umbilical hernia TISSUE SUBMITTED: Umbilical hernia sac and umbilical skin MICROSCOPIC DIAGNOSIS Umbilical hernia sac and umbilical skin: Fragments of fibroadipose and fibroconnective tissue consistent with hernia sac. A piece of skin with minimal dermal chronic inflammation. SJ:nicole 09/14/17 MICROSCOPIC DESCRIPTION Slides are reviewed. GROSS DESCRIPTION Received in fixative is one container labeled with the patient's name and designated umbilical hernia sac and umbilical skin. The specimen consists of an irregular fragment of fan-yellow fibrofatty tissue measuring 10 x 7 x 2.5 cm. Sectioning does not reveal mass lesions. The cut surfaces are yellow-fan in color. No area of cyst formation or necrosis is seen. Also present in the specimen container is an elongated fragment of fan skin measuring 4 x 1 x 0.2 cm. No cutaneous lesions are identified. Training Manager sections are submitted in one cassette. / AM:nicole 09/13/17 TC:5 CPT: 91515
[2017-09-12 09:45] VITALS: BP 138/72; PULSE 62; RESP 18; TEMP 36.8; O2SAT 96; BMI 31.0
[2017-09-12] MEDS: Cefazolin 2 GM in 0.9% Normal Saline 100 ML IV (11:11)
--- NOTE | 2017-09-12 11:20 | PCM.DC.GS ---
Discharge Diet: Light diet - advance as tolerated - if you have questions about your diet instructions, please talk to you doctor. Discharge Activity: May Not Drive - for 1 week or while taking narcotic pain medicine. May shower in (days): 1 Lifting Restrictions: 10 pounds Call your doctor if your incision/area has: Continuous Slow Oozing, Sudden Increased Bleeding, Increased Pain/ Swelling, Increased Redness, Foul Smelling Discharge Call your doctor if you observe: Fever of 101 or Higher Suture Line Care: Avoid Pulling/Pushing, Avoid Pinching/Bending Additional Dressing/Incision Instructions:: Change or remove dressing in 4 days. Leave steri-strips in place for 1 week. Allergies/Adverse Reactions: Allergies No Known Allergies Allergy (Verified 09/05/17 10:08) Medications to take at Discharge Garlic [Odor Free Garlic] 100 mg PO DAILY 06/22/17 Hydrocodone Bitart/Apap 5-325 [[place] 5MG-325MG] 1 tab PO Q6H PRN PRN 3 Days #10 tab 09/12/17 The following prescriptions were given: Hydrocodone Bitart/Apap 5-325 [[place] 5MG-325MG] 1 tab PO Q6H PRN PRN 3 Days #10 tab PRN Reason: Pain Primary Care Physician: Ulices Mahoney, FOOD DEHYDRATOR OPERATOR-C [Primary Care Provider] - Test Results: Test results from this visit will be discussed in further detail at your follow-up appointment, if applicable. Please Follow Up With: Sae Mason MD - [phone] When: Call to make an appointment to be seen in about 10 days.
[2017-09-12] MEDS: Bupivacaine Mpf 0.5% 30 ML VIAL (12:50)
--- NOTE | 2017-09-12 12:51 | PCM.OPRPT ---
Problem List (1) Bilateral inguinal hernia Status: Acute Qualifiers: Obstruction and gangrene presence: without obstruction or gangrene Recurrence: non-recurrent Qualified Code(s): K40.20 - Bilateral inguinal hernia, without obstruction or gangrene, not specified as recurrent (2) Umbilical hernia without mention of obstruction or gangrene Status: Acute Qualifiers: Obstruction and gangrene presence: without obstruction or gangrene Qualified Code(s): K42.9 - Umbilical hernia without obstruction or gangrene Report of Operation Date of Procedure: 09/12/17 Pre-Operative Diagnosis: Left inguinal hernia and umbilical hernia Post-Operative Diagnosis: Direct and indirect bilateral inguinal hernias. Umbilical hernia Surgery/Procedure Performed:: Laparoscopic bilateral inguinal herniorrhaphy. umbilical herniorrhaphy with ventralex mesh Description of Surgical Findings:: Timeout and informed consent was obtained. 72-year-old gent was taken out from. He underwent general endotracheal intubation anesthesia. Ancef 2 g given intravenously preoperatively. The abdomen was sterilely prepped draped. 0.5% Marcaine was used as local anesthetic. Throughout the procedure total 30 cc was used. A curvilinear incision was made in the inferior portion of the umbilicus sharp and blunt dissection electrocautery dissection was used to completely excise a exuberant hernia with exuberant preperitoneal fat. This is dissected free the specimen was sac contents and I trimmed a portion of the skin because of the laxity. Then placed a Rayo catheter. The abdomen was insufflated with CO2 to a pressure of 10 mmHg pressure. Inspection revealed direct and indirect bilateral inguinal hernias. Five-minute trochars were placed in the right and left lower quadrants. Left hernia was addressed first the peritoneum was incised extensive dissection was used to completely invert the direct defect indirect defect I had complete access to direct indirect and femoral area. A republican through 3D max large left mesh lot number [id number] reference #[id number] expiry date 05/24/2022 was utilized it was placed to nicely cover the defect area it was secured laterally superiorly medially with secure strap excellent positioning was achieved. Then the right side was addressed. The hernia was dissected free. There were adhesions laterally from a remote appendectomy. Some of this dissection on the right was slightly more difficult. There was a smaller direct and indirect defect on the right. I elected to place a right medium mesh. 3D max. Lot number [id number]. Lot #[id number]. Expiry date 09/01/2021. It seemed to cover the defect adequately and I secured it medially superiolaterally with secure strap. [place] that I had good positioning. The peritoneum was then approximated to itself bilaterally with secure strap and were needed several Hem-o-alvaro clips. Complete obliteration to the mesh was achieved bilaterally. The abdomen was allowed to deflate of CO2. 8 8 cm ventral X mesh lot number [id number] reference #[id number] with an expiry date of 10/01/2018 was utilized. The tails were secured with interrupted 0 Nurolon. The fascia was approximated with [id number] sutures of 0 Nurolon. Inspection within revealed that I needed to placed 3 secure straps to help keep the mesh perfectly flat which was achieved. Greater omentum was overlying the bowel in the abdomen. Good closure was changed achieved now at all sites. The abdomen was allowed to deflate of the CO2. Skin edges proximate interrupted 4 Monocryl subdermal stitches. Steri-Strips Telfa OpSite dressings applied. Sponge and instrument and needle counts were reported the surgeon be correct. Drains none. The specimen was the umbilical hernia sac contents and portion of umbilical skin. Blood loss minimal. He was taken to the recovery area in satisfactory condition without apparent complication. Sae Mason M.D., F.A.C.S. Type of Anesthesia:: General Anesthesiologist: Lazaro Madrigal
--- NOTE | 2017-09-12 12:58 | OP.PCM_ITS ---
Problem List (1) Bilateral inguinal hernia Status: Acute Qualifiers: Obstruction and gangrene presence: without obstruction or gangrene Recurrence: non-recurrent Qualified Code(s): K40.20 - Bilateral inguinal hernia, without obstruction or gangrene, not specified as recurrent (2) Umbilical hernia without mention of obstruction or gangrene Status: Acute Qualifiers: Obstruction and gangrene presence: without obstruction or gangrene Qualified Code(s): K42.9 - Umbilical hernia without obstruction or gangrene Report of Operation Date of Procedure: 09/12/17 Pre-Operative Diagnosis: Left inguinal hernia and umbilical hernia Post-Operative Diagnosis: Direct and indirect bilateral inguinal hernias. Umbilical hernia Surgery/Procedure Performed:: Laparoscopic bilateral inguinal herniorrhaphy. umbilical herniorrhaphy with ventralex mesh Description of Surgical Findings:: Timeout and informed consent was obtained. 72-year-old gent was taken out from. He underwent general endotracheal intubation anesthesia. Ancef 2 g given intravenously preoperatively. The abdomen was sterilely prepped draped. 0.5% Marcaine was used as local anesthetic. Throughout the procedure total 30 cc was used. A curvilinear incision was made in the inferior portion of the umbilicus sharp and blunt dissection electrocautery dissection was used to completely excise a exuberant hernia with exuberant preperitoneal fat. This is dissected free the specimen was sac contents and I trimmed a portion of the skin because of the laxity. Then placed a Rayo catheter. The abdomen was insufflated with CO2 to a pressure of 10 mmHg pressure. Inspection revealed direct and indirect bilateral inguinal hernias. Five-minute trochars were placed in the right and left lower quadrants. Left hernia was addressed first the peritoneum was incised extensive dissection was used to completely invert the direct defect indirect defect I had complete access to direct indirect and femoral area. A alliance party through 3D max large left mesh lot number [id number] reference #[id number] expiry date 05/24/2022 was utilized it was placed to nicely cover the defect area it was secured laterally superiorly medially with secure strap excellent positioning was achieved. Then the right side was addressed. The hernia was dissected free. There were adhesions laterally from a remote appendectomy. Some of this dissection on the right was slightly more difficult. There was a smaller direct and indirect defect on the right. I elected to place a right medium mesh. 3D max. Lot number [id number]. Lot # [id number]. Expiry date 09/01/2021. It seemed to cover the defect adequately and I secured it medially superiolaterally with secure strap. [place] that I had good positioning. The peritoneum was then approximated to itself bilaterally with secure strap and were needed several Hem-o-alvaro clips. Complete obliteration to the mesh was achieved bilaterally. The abdomen was allowed to deflate of CO2. 8 8 cm ventral X mesh lot number [id number] reference #[id number] with an expiry date of 10/01/2018 was utilized. The tails were secured with interrupted 0 Nurolon. The fascia was approximated with [id number] sutures of 0 Nurolon. Inspection within revealed that I needed to placed 3 secure straps to help keep the mesh perfectly flat which was achieved. Greater omentum was overlying the bowel in the abdomen. Good closure was changed achieved now at all sites. The abdomen was allowed to deflate of the CO2. Skin edges proximate interrupted 4 Monocryl subdermal stitches. Steri-Strips Telfa OpSite dressings applied. Sponge and instrument and needle counts were reported the surgeon be correct. Drains none. The specimen was the umbilical hernia sac contents and portion of umbilical skin. Blood loss minimal. He was taken to the recovery area in satisfactory condition without apparent complication. Sae Mason M.D., F.A.C.S. Type of Anesthesia:: General Anesthesiologist: Lazaro Madrigal
[2017-09-12 13:11] VITALS: BP 138/72; BP 148/86; PULSE 68; RESP 16; TEMP 36.6; O2SAT 91
[2017-09-12 13:15] VITALS: BP 138/72; BP 147/77; PULSE 64; RESP 16; O2SAT 95
[2017-09-12 13:30] VITALS: BP 138/72; BP 158/74; PULSE 65; RESP 16; O2SAT 96
[2017-09-12 13:43] VITALS: BP 138/72; PULSE 64; RESP 16; TEMP 36.4; O2SAT 92
[2017-09-12 14:45] VITALS: BP 138/72
== END 2017-09-12 14:45 | disposition home or self-care (01) ==
LOC: SDC 09:19 → AC 09:21
PROVIDERS: Family Provider Nurse Practitioner Family; PCP Nurse Practitioner Family; Visit Provider Surgery
PROC: (CPT 49650; principal; 2017-09-12 10:40)
DX: K40.20 Bilateral inguinal hernia, without obstruction or gangrene, not specified as recurrent (principal); K42.9 Umbilical hernia without obstruction or gangrene
CPT/HCPCS: 49585; 49650; 80048; 85027; 88302; J7120; C1781; J2405

== ENCOUNTER → 2017-11-22 16:42 | Outpatient (CLI) | payer OTHER, SELFPAY | PROVIDERS: Family Provider Nurse Practitioner Family; PCP Nurse Practitioner Family; Visit Provider Urology | DX: R82.99 Other abnormal findings in urine (principal) | CPT/HCPCS: 87086; 87088 ==

== ENCOUNTER → 2018-05-02 17:10 | Outpatient (CLI) | payer OTHER, SELFPAY ==
[2018-05-02 18:13] LABS: PSA,Total- Diagnostic 2.14 ng/mL (0.0-4.0)
== END ==
PROVIDERS: Family Provider Nurse Practitioner Family; PCP Nurse Practitioner Family; Referring Provider Urology; Visit Provider Urology
DX: N40.0 Benign prostatic hyperplasia without lower urinary tract symptoms (principal)
CPT/HCPCS: 36415; 84153

== ENCOUNTER → 2023-04-25 | Outpatient (CLI) | payer SELFPAY, OTHER ==
--- OUTSIDE RECORDS SUMMARY | 2023-04-25 09:07 | XMS RPT_ITS | CCD ---
Author Name Unknown Address [id number] [place] [address] Organization [facility] Care Team Providers Care Focuser Name Role Phone NENA HUMPHREYS Unavailable Unavailable SHANDRA CHAMBERS Unavailable Unavailable Jolene Gray Attending Unavailable Jolene Gray Consulting Unavailable Jolene Gray Unavailable Beth Veliz Unavailable Unavailable Nichole Ellsworth Unavailable Unavailable Gravius, Flower Unavailable Unavailable Ally Rutledge Unavailable Unavailable Ayan Mancini Unavailable Unavailable Mari Soriano Unavailable Gwendolyn Loja Unavailable Unavailable Taty Ivan Unavailable Unavailable ANGEL LEONARDO DR Attending Unavailable ANGEL LEONARDO DR Primary Care Unavailable ANGEL LEONARDO DR Admitting Unavailable JOLENE GRAY DO Consulting Unavailable PROVIDER, UNKNOWN Consulting Unavailable Jolene Gray DO Unavailable Taty Ivan LPN Unavailable Unavailable Gravius PREET, Flower Unavailable Unavailable Ayan Skinner LPN Unavailable Unavailable Mari Soriano CNP Unavailable Unavailable Unavailable Allergies Allergy Classification Reported Allergen(s) Allergy Type Date of Onset Reaction(s) Facility Doxycycline (1 source) Doxycycline; Translations: [Doxycycline *DERMATOLOGICALS *] Drug Allergy [facility] Work Phone: Medications Completed/Discontinued Medications Medication Drug Class(es) Dates Sig (Normalized) Sig (Original) azithromycin 250 mg oral tablet (1 source) Macrolide Antimicrobial Start: 02-13-2021 Zithromax Z-Herber 250 MG Oral Tablet 1 (one) Tablet TAD for 0 days Quantity: 1 {Packet} Refills: 0 Ordered: 13-Feb-2021 Mari Soriano CNP Start : 13-Feb-2021 Active Comments: package Problems Active Problems Problem Classification Problem Date Documented Da te Episodic/Chronic Disorders of lipid metabolism (12 sources) Hypercholesterole reed; Translations: [Elevated cholesterol] 11-30-2018 Chronic Fever of unknown origin (2 sources) Fever; Translations: [Fever] 02-13-2021 Episodic Fluid and electrolyte disorders (4 sources) Hyperkalemia; Translations: [Serum potassium elevated] 05-29-2020 Episodic Osteoarthritis (1 source) Primary osteoarthritis, right shoulder; Translations: [Primary osteoarthritis, right shoulder] Onset: 06-19-2020 Chronic Other circulatory disease (1 source) Facial sinus finding; Translations: [Sinus complaint] 02-13-2021 Episodic Other lower respiratory disease (20 sources) Cough; Translations: [Cough] Resolved: 11-30-2018 11-30-2018 Episodic Other male genital disorders (7 sources) Impotence of organic origin; 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] 11-30-2018 Chronic Past or Other Problems Problem Classification Problem Date Documented Da te Episodic/Chronic Unclassified (20 sources) Physical exam; Translations: [Patient encounter status] 11-30-2018 Unclassified (13 sources) Viral respiratory illness Unclassified (4 sources) Serum potassium elevated Unclassified (1 source) Sinus complaint Results Test Name Value Interpretation Reference Range Facil ity Vital Signs Date Time Vital Sign Value Performing Clinician Loraine stevenson 02-13-2021 07:57-0500 Body height 170.18 cm Mari Velazquez Christie [employer] Work Phone: [facility] Work Phone: 02-13-2021 07:57-0500 Body mass index (BMI) [Ratio] 32.19 kg/m2 Mari Soriano CNP Work Phone: [facility] Work Phone: 02-13-2021 07:57-0500 Body surface area Derived from formula 2.05 m2 Mari Soriano CNP Work Phone: [facility] Work Phone: 02-13-2021 07:57-0500 Body weight 93.21 kg Madelin Ciesa [employer]LET LU[employer]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 Work Phone: [facility] Work Phone: 02-13-2021 07:57-0500 SaO2% (BldA) [Mass fraction] 90 % Mari Soriano BULLET LUBR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 Work Phone: [facility] Work Phone: Encounters Encounter Date Encounter Type Care Provider Facility Start: 02-13-2021 End: 02-13-2021 Office outpatient visit 10 minutes Jolene Gray DO Work Phone: [facility] Start: 06-19-2020 End: 06-19-[address] JORDEN [facility] Start: 06-12-2020 End: 06-12-2020 Office outpatient visit 15 minutes Jolene Gray [facility] Start: 05-22-2020 End: 05-22-2020 Annotation/Addendum Jolene Deshpande [facility] Director Intelligence Officer al Medicine Start: 01-24-2020 End: 01-24-2020 Office outpatient visit 5 minutes Jolene Gray [facility] Start: 01-24-2020 End: 01-24-2020 Office outpatient visit 15 minutes Jolene Gray [facility] Start: 09-21-2019 End: 09-21-2019 Office outpatient visit 15 minutes Jolene Gray [facility] Start: 08-17-2019 End: 08-17-2019 Office outpatient visit 15 minutes Jolene Gray [facility] Start: 03-02-2019 End: 03-02-2019 Office outpatient visit 15 minutes Jolene Gray [facility] Start: 11-30-2018 End: 11-30-2018 Office outpatient visit 25 minutes Jolene Gray [facility] Start: 11-14-2018 End: 11-15-2018 Phone Encounter Jolene Deshpande [facility]oc Director Intelligence Officer [facility] Start: 06-06-2018 End: 06-06-2018 Office outpatient visit 10 minutes Jolene Gray [facility] Start: 05-15-2018 Patient encounter procedure Jolene Deshpande [facility] Start: 05-15-2018 End: 05-15-2018 Initial preventive medicine new patient 64yrs&> Jolene Gray [facility] Start: 06-20-2017 End: 06-20-2017 Emergency department patient visit NENA HUMPHREYS Facility:B Physical examination Taty Ivan [facility] Work Phone: Physical examination Ayan Skinner [facility] Work Phone: Procedures Date Procedure Procedure Detail Performing Clinician Appendectomy Bethdonnell Veliz Plan of Treatment Date Care Activity Detail Author Start: 02-13-2021 Procedure Education Eprescribed prescriptions (G8553) [facility] Work Phone: Start: 02-13-2021 Provider Instructions for Treatment Follow up if no improvement or if symptoms worsen [facility] Work Phone: Start: 02-13-2021 Iaadiadoo influenza 2019 Novel Coronavirus (COVID-19), VIRGILIO ([id number]) [facility] Work Phone: Start: 02-13-2021 INHOUSE COVID 19 (ONLY) RAPID ([id number]) INHOUSE COVID 19 (ONLY) RAPID ([id number]) [facility] Work Phone: Start: 06-12-2020 Procedure Education Eprescribed prescriptions (G8553) [facility] Work Phone: Start: 06-12-2020 Provider Instructions for Treatment [facility] Work Phone: Start: 06-12-2020 Lipoprotein blood bryan numbers & subclasses NMR Profile (32717) [facility] Work Phone: Start: 01-24-2020 Procedure Education Eprescribed prescriptions (G8553) [facility] Work Phone: Start: 01-24-2020 Provider Instructions for Treatment [facility] Work Phone: Start: 01-24-2020 Assay of prostate specific antigen total PSA (PROSTATE SPECIFIC ANTIGEN) (V76.44) [facility] Work Phone: Start: 01-24-2020 Lipoprotein blood bryan numbers & subclasses NMR Profile (88406) [facility] Work Phone: Start: 01-24-2020 TSH Qn TSH (88031) [facility] Intelligence Officer [facility] Work Phone: Start: 01-24-2020 Comprehensive metabolic panel METABOLIC PANEL, COMPREHENSIVE (93660) [facility] Work Phone: Start: 01-24-2020 Blood count complete auto&auto difrntl wbc CBC W/AUTO DIFF WBC (79180) [facility] Work Phone: Start: 09-21-2019 Procedure Education Eprescribed prescriptions (G8553) [facility] Work Phone: Start: 09-21-2019 Provider Instructions for Treatment [facility] Work Phone: Start: 09-21-2019 Lipoprotein blood bryan numbers & subclasses NMR Profile (30520) [facility] Work Phone: Start: 08-17-2019 Procedure Education Eprescribed prescriptions (G8553) [facility] Work Phone: Start: 08-17-2019 Provider Instructions for Treatment Cholesterol mgmt [facility] Work Phone: Start: 03-02-2019 Procedure Education Eprescribed prescriptions (G8553) [facility] Work Phone: Start: 03-02-2019 Provider Instructions for Treatment [facility] Work Phone: Start: 11-30-2018 Procedure Education Eprescribed prescriptions (G8553) [facility] Work Phone: Start: 11-30-2018 Provider Instructions for Treatment [facility] Work Phone: Start: 11-30-2018 Lipoprotein blood bryan numbers & subclasses NMR Profile (62278) [facility] Work Phone: Start: 11-14-2018 Hepatic function panel HEPATIC FUNCTION PANEL (58392) [facility] Work Phone: Start: 11-14-2018 Lipoprotein blood bryan numbers & subclasses NMR Profile (98890) [facility] Work Phone: Start: 06-06-2018 Procedure Education Eprescribed prescriptions (G8553) [facility] Work Phone: Start: 06-06-2018 Provider Instructions for Treatment Follow up if no improvement or if symptoms worsen [facility] Work Phone: Start: 05-15-2018 Lipoprotein blood bryan numbers & subclasses NMR Profile (79454) [facility] Work Phone: [facility] Work Phone: [facility] Work Phone: [facility] Work Phone: BMI 32.0-32.9,ad ult : Follow up if no improvement or if symptoms worsen [facility] Work Phone: BMI 32.0-32.9,ad ult : Eprescribed prescriptions (G8553) [facility] Work Phone: Payers Date Payer Category Payer Self-pay 1945 Unknown [id number] Unknown [id number] Social History Date Type Detail Facility Exercise History: Exercise [facility] Work Phone: Living Situation: Living Situation: [facility] Work Phone: No Caffeine Use No Caffeine Use Comprehen [facility] Work Phone: Exercise History: Exercise History: [facility]; [facility] Work Phone: Living Situation: Living Situation: [facility]; [facility] Work Phone: Functional Status Date Assessment Result Facility 05-20-2020 LP-IR Score LP-IR Score 63 [facility] Work Phone: Instructions Note Date & Type Note Facility [facility] Work Phone: Instructions Note Date & Type Note Facility [facility] Work Phone: Summary Purpose Family History Unknown Family Member Name Dates Details No Known Family History 15-May-2018 Status:Active Unknown Family Member Name Dates Details No Known Family History 15-May-2018 Status:Active Unknown Family Member Name Dates Details No Known Family History 15-May-2018 Status:Active Unknown Family Member Name Dates Details No Known Family History 15-May-2018 Status:Active Unknown Family Member Name Dates Details No Known Family History 15-May-2018 Status:Active Unknown Family Member Name Dates Details No Known Family History 15-May-2018 Status:Active Unknown Family Member Name Dates Details No Known Family History 15-May-2018 Status:Active Unknown Family Member Name Dates Details No Known Family History 15-May-2018 Status:Active Unknown Family Member Name Dates Details No Known Family History 15-May-2018 Status:Active Unknown Family Member Name Dates Details No Known Family History 15-May-2018 Status:Active Advance Directives No Advanced Directives Records FoundNo Advanced Directives Records FoundNo Advanced Directives Records Found Instructions Name Dates Details How to access health informa tion online Indication:Non-smoker Start:30-Nov-2018 Instruction Type:Patient Education How to access health informa tion online - Detail Indication:Non-smoker Start:30-Nov-2018 Instruction Type:Patient Education Patient Instructions Indication:Non-smoker Start:30-Nov-2018 Instruction Type:Provider Instructions for Treatment How to access health informa tion online Indication:BMI 32.0-32.9,adult Start:06-Jun-2018 Instruction Type:Patient Education How to access health informa tion online - Detail Indication:BMI 32.0-32.9,adult Start:06-Jun-2018 Instruction Type:Patient Education Patient Instructions Indication:BMI 32.0-32.9,adult Start:06-Jun-2018 Instruction Type:Provider Instructions for Treatment How to access health informa tion online - Detail Indication:Non-smoker Start:15-May-2018 Instruction Type:Patient Education How to access health informa tion online Indication:Non-smoker Start:15-May-2018 Instruction Type:Patient Education Patient Instructions Indication:Non-smoker Start:15-May-2018 Instruction Type:Provider Instructions for Treatment Name Dates Details How to access health informa tion online Indication:BMI 32.0-32.9,adult Start:21-Sep-2019 Instruction Type:Patient Education How to access health informa tion online - Detail Indication:BMI 32.0-32.9,adult Start:21-Sep-2019 Instruction Type:Patient Education Patient Instructions Indication:BMI 32.0-32.9,adult Start:21-Sep-2019 Instruction Type:Provider Instructions for Treatment How to access health informa tion online Indication:Non-smoker Start:17-Aug-2019 Instruction Type:Patient Education How to access health informa tion online - Detail Indication:Non-smoker Start:17-Aug-2019 Instruction Type:Patient Education Patient Instructions Indication:Non-smoker Start:17-Aug-2019 Instruction Type:Provider Instructions for Treatment How to access health informa tion online Indication:BMI 32.0-32.9,adult Start:02-Mar-2019 Instruction Type:Patient Education How to access health informa tion online - Detail Indication:BMI 32.0-32.9,adult Start:02-Mar-2019 Instruction Type:Patient Education Patient Instructions Indication:BMI 32.0-32.9,adult Start:02-Mar-2019 Instruction Type:Provider Instructions for Treatment How to access health informa tion online Indication:Non-smoker Start:30-Nov-2018 Instruction Type:Patient Education How to access health informa tion online - Detail Indication:Non-smoker Start:30-Nov-2018 Instruction Type:Patient Education Patient Instructions Indication:Non-smoker Start:30-Nov-2018 Instruction Type:Provider Instructions for Treatment How to access health informa tion online Indication:BMI 32.0-32.9,adult Start:06-Jun-2018 Instruction Type:Patient Education How to access health informa tion online - Detail Indication:BMI 32.0-32.9,adult Start:06-Jun-2018 Instruction Type:Patient Education Patient Instructions Indication:BMI 32.0-32.9,adult Start:06-Jun-2018 Instruction Type:Provider Instructions for Treatment How to access health informa tion online - Detail Indication:Non-smoker Start:15-May-2018 Instruction Type:Patient Education How to access health informa tion online Indication:Non-smoker Start:15-May-2018 Instruction Type:Patient Education Patient Instructions Indication:Non-smoker Start:15-May-2018 Instruction Type:Provider Instructions for Treatment Name Dates Details How to access health informa tion online Indication:Non-smoker Start:24-Jan-2020 Instruction Type:Patient Education How to access health informa tion online - Detail Indication:Non-smoker Start:24-Jan-2020 Instruction Type:Patient Education Patient Instructions Indication:Non-smoker Start:24-Jan-2020 Instruction Type:Provider Instructions for Treatment How to access health informa tion online Indication:BMI 32.0-32.9,adult Start:21-Sep-2019 Instruction Type:Patient Education How to access health informa tion online - Detail Indication:BMI 32.0-32.9,adult Start:21-Sep-2019 Instruction Type:Patient Education Patient Instructions Indication:BMI 32.0-32.9,adult Start:21-Sep-2019 Instruction Type:Provider Instructions for Treatment How to access health informa tion online Indication:Non-smoker Start:17-Aug-2019 Instruction Type:Patient Education How to access health informa tion online - Detail Indication:Non-smoker Start:17-Aug-2019 Instruction Type:Patient Education Patient Instructions Indication:Non-smoker Start:17-Aug-2019 Instruction Type:Provider Instructions for Treatment How to access health informa tion online Indication:BMI 32.0-32.9,adult Start:02-Mar-2019 Instruction Type:Patient Education How to access health informa tion online - Detail Indication:BMI 32.0-32.9,adult Start:02-Mar-2019 Instruction Type:Patient Education Patient Instructions Indication:BMI 32.0-32.9,adult Start:02-Mar-2019 Instruction Type:Provider Instructions for Treatment How to access health informa tion online Indication:Non-smoker Start:30-Nov-2018 Instruction Type:Patient Education How to access health informa tion online - Detail Indication:Non-smoker Start:30-Nov-2018 Instruction Type:Patient Education Patient Instructions Indication:Non-smoker Start:30-Nov-2018 Instruction Type:Provider Instructions for Treatment How to access health informa tion online Indication:BMI 32.0-32.9,adult Start:06-Jun-2018 Instruction Type:Patient Education How to access health informa tion online - Detail Indication:BMI 32.0-32.9,adult Start:06-Jun-2018 Instruction Type:Patient Education Patient Instructions Indication:BMI 32.0-32.9,adult Start:06-Jun-2018 Instruction Type:Provider Instructions for Treatment How to access health informa tion online - Detail Indication:Non-smoker Start:15-May-2018 Instruction Type:Patient Education How to access health informa tion online Indication:Non-smoker Start:15-May-2018 Instruction Type:Patient Education Patient Instructions Indication:Non-smoker Start:15-May-2018 Instruction Type:Provider Instructions for Treatment Name Dates Details Non-smoker : How to access h ealth information online - Detail Indication:Non-smoker Non-smoker : How to access h ealth information online Indication:Non-smoker Non-smoker : Patient Instruc tions Indication:Non-smoker Name Dates Details How to access health informa tion online Indication:BMI 32.0-32.9,adult Start:06-Jun-2018 Instruction Type:Patient Education How to access health informa tion online - Detail Indication:BMI 32.0-32.9,adult Start:06-Jun-2018 Instruction Type:Patient Education Patient Instructions Indication:BMI 32.0-32.9,adult Start:06-Jun-2018 Instruction Type:Provider Instructions for Treatment How to access health informa tion online - Detail Indication:Non-smoker Start:15-May-2018 Instruction Type:Patient Education How to access health informa tion online Indication:Non-smoker Start:15-May-2018 Instruction Type:Patient Education Patient Instructions Indication:Non-smoker Start:15-May-2018 Instruction Type:Provider Instructions for Treatment Name Dates Details How to access health informa tion online Indication:Non-smoker Start:24-Jan-2020 Instruction Type:Patient Education How to access health informa tion online - Detail Indication:Non-smoker Start:24-Jan-2020 Instruction Type:Patient Education Patient Instructions Indication:Non-smoker Start:24-Jan-2020 Instruction Type:Provider Instructions for Treatment How to access health informa tion online Indication:BMI 32.0-32.9,adult Start:21-Sep-2019 Instruction Type:Patient Education How to access health informa tion online - Detail Indication:BMI 32.0-32.9,adult Start:21-Sep-2019 Instruction Type:Patient Education Patient Instructions Indication:BMI 32.0-32.9,adult Start:21-Sep-2019 Instruction Type:Provider Instructions for Treatment How to access health informa tion online Indication:Non-smoker Start:17-Aug-2019 Instruction Type:Patient Education How to access health informa tion online - Detail Indication:Non-smoker Start:17-Aug-2019 Instruction Type:Patient Education Patient Instructions Indication:Non-smoker Start:17-Aug-2019 Instruction Type:Provider Instructions for Treatment How to access health informa tion online Indication:BMI 32.0-32.9,adult Start:02-Mar-2019 Instruction Type:Patient Education How to access health informa tion online - Detail Indication:BMI 32.0-32.9,adult Start:02-Mar-2019 Instruction Type:Patient Education Patient Instructions Indication:BMI 32.0-32.9,adult Start:02-Mar-2019 Instruction Type:Provider Instructions for Treatment How to access health informa tion online Indication:Non-smoker Start:30-Nov-2018 Instruction Type:Patient Education How to access health informa tion online - Detail Indication:Non-smoker Start:30-Nov-2018 Instruction Type:Patient Education Patient Instructions Indication:Non-smoker Start:30-Nov-2018 Instruction Type:Provider Instructions for Treatment How to access health informa tion online Indication:BMI 32.0-32.9,adult Start:06-Jun-2018 Instruction Type:Patient Education How to access health informa tion online - Detail Indication:BMI 32.0-32.9,adult Start:06-Jun-2018 Instruction Type:Patient Education Patient Instructions Indication:BMI 32.0-32.9,adult Start:06-Jun-2018 Instruction Type:Provider Instructions for Treatment How to access health informa tion online - Detail Indication:Non-smoker Start:15-May-2018 Instruction Type:Patient Education How to access health informa tion online Indication:Non-smoker Start:15-May-2018 Instruction Type:Patient Education Patient Instructions Indication:Non-smoker Start:15-May-2018 Instruction Type:Provider Instructions for Treatment Name Dates Details BMI 32.0-32.9,adult : How to access health information online Indication:BMI 32.0-32.9,adult BMI 32.0-32.9,adult : How to access health information online - Detail Indication:BMI 32.0-32.9,adult BMI 32.0-32.9,adult : Patien t Instructions Indication:BMI 32.0-32.9,adult Non-smoker : How to access h ealth information online - Detail Indication:Non-smoker Non-smoker : How to access h ealth information online Indication:Non-smoker Non-smoker : Patient Instruc tions Indication:Non-smoker Name Dates Details How to Access Health Informa tion Online using Patient Portal and 3rd [employer] Apps Indication:Non-smoker Start:12-Jun-2020 Instruction Type:Patient Education Patient Instructions Indication:Non-smoker Start:12-Jun-2020 Instruction Type:Provider Instructions for Treatment How to access health informa tion online Indication:Non-smoker Start:24-Jan-2020 Instruction Type:Patient Education How to access health informa tion online - Detail Indication:Non-smoker Start:24-Jan-2020 Instruction Type:Patient Education Patient Instructions Indication:Non-smoker Start:24-Jan-2020 Instruction Type:Provider Instructions for Treatment How to access health informa tion online Indication:BMI 32.0-32.9,adult Start:21-Sep-2019 Instruction Type:Patient Education How to access health informa tion online - Detail Indication:BMI 32.0-32.9,adult Start:21-Sep-2019 Instruction Type:Patient Education Patient Instructions Indication:BMI 32.0-32.9,adult Start:21-Sep-2019 Instruction Type:Provider Instructions for Treatment How to access health informa tion online Indication:Non-smoker Start:17-Aug-2019 Instruction Type:Patient Education How to access health informa tion online - Detail Indication:Non-smoker Start:17-Aug-2019 Instruction Type:Patient Education Patient Instructions Indication:Non-smoker Start:17-Aug-2019 Instruction Type:Provider Instructions for Treatment How to access health informa tion online Indication:BMI 32.0-32.9,adult Start:02-Mar-2019 Instruction Type:Patient Education How to access health informa tion online - Detail Indication:BMI 32.0-32.9,adult Start:02-Mar-2019 Instruction Type:Patient Education Patient Instructions Indication:BMI 32.0-32.9,adult Start:02-Mar-2019 Instruction Type:Provider Instructions for Treatment How to access health informa tion online Indication:Non-smoker Start:30-Nov-2018 Instruction Type:Patient Education How to access health informa tion online - Detail Indication:Non-smoker Start:30-Nov-2018 Instruction Type:Patient Education Patient Instructions Indication:Non-smoker Start:30-Nov-2018 Instruction Type:Provider Instructions for Treatment How to access health informa tion online Indication:BMI 32.0-32.9,adult Start:06-Jun-2018 Instruction Type:Patient Education How to access health informa tion online - Detail Indication:BMI 32.0-32.9,adult Start:06-Jun-2018 Instruction Type:Patient Education Patient Instructions Indication:BMI 32.0-32.9,adult Start:06-Jun-2018 Instruction Type:Provider Instructions for Treatment How to access health informa tion online - Detail Indication:Non-smoker Start:15-May-2018 Instruction Type:Patient Education How to access health informa tion online Indication:Non-smoker Start:15-May-2018 Instruction Type:Patient Education Patient Instructions Indication:Non-smoker Start:15-May-2018 Instruction Type:Provider Instructions for Treatment Additional Source Comments (unrecognized sect ion and content) No Status Records FoundNo Status Records FoundNo Status Records Found INFORMATION SOURCE (unrecogn ized section and content) DATE CREATED AUTHOR AUTHOR'S VALERIE ATION 05/16/2018 [facility] DATE CREATED AUTHOR AUTHOR'S ORGANIZ ATION 06/26/2020 [facility] FOR RECORDS PERTAINING TO PATIENTS WHO ARE OR HAVE BEEN ENROLLED IN A CHEMICAL DEPENDENCY/SUBSTANCEABUSE PROGRAM, SOME INFORMATION MAY BE OMITTED. This clinical summary was aggregated from multiple sources. Caution should be exercised in using it in the provision of clinical care. This summary normalizes information from multiple sources, and as a consequence, information in this document may materially change the coding, format and clinical context of patient data. In addition, data may be omitted in some cases. CLINICAL DECISIONS SHOULD BE BASED ON THE PRIMARY CLINICAL RECORDS. [employer] provides no warranty or guarantee of the accuracy or completeness of information in this document.
--- NOTE | 2023-04-25 09:30 | MRI_ITS ---
ACR Level 3 findings have been noted. An addendum which confirms receipt of the report will follow. HISTORY: SLURRED SPEECH. TECHNIQUE: Multiplanar and multisequence MR images of the brain were obtained without contrast. 339 images. COMPARISON: None. FINDINGS: BRAIN PARENCHYMA: 6 mm focus of restricted diffusion in the left thalamus with corresponding T2 FLAIR signal abnormality. Multiple foci of increased T2 FLAIR signal in the bilateral cerebral white matter. No acute intracranial hemorrhage identified. CSF SPACES: Mild volume loss. No significant midline shift or other mass effect.No extra-axial fluid collection. VASCULAR SYSTEM: Major intracranial flow voids are maintained. PARANASAL SINUSES AND MASTOID AIR CELLS: Mild right frontal ethmoid mucosal thickening. ORBITS: Symmetric contents. MRI/Brain without Contrast IMPRESSION: Acute left thalamic lacunar infarct. Mild chronic involutional and white matter changes. Electronically Signed: Patricia Paniagua MD at 13:39 EST ,
== END | disposition home or self-care (01) ==
PROVIDERS: PCP Internal Medicine; Referring Provider Internal Medicine; Visit Provider Internal Medicine
DX: R47.81 Slurred speech (principal)
CPT/HCPCS: 70551

== ENCOUNTER → 2023-04-26 | Outpatient (CLI) | payer SELFPAY, OTHER ==
--- NOTE | 2023-04-26 13:50 | CDU_ITS ---
Reason For Study: slurred speech Rt. Velocities/BP Lt. Velocities/BP Prox CCA 74.0/15.4 cm/sec. Prox CCA 93.7/17.6 cm/sec. Mid CCA 84.4/18.2 cm/sec. Mid CCA 99.8/21.2 cm/sec. Dist CCA 71.1/21.1 cm/sec. Dist CCA 96.1/23.7 cm/sec. Prox ICA 135.7/38.9 cm/sec. Prox ICA 81.4/20.0 cm/sec. Mid ICA 106.0/27.4 cm/sec. Mid ICA 77.7/18.8 cm/sec. Dist ICA 67.9/21.2 cm/sec. Dist ICA 36.6/12.4 cm/sec. Rt. ICA/CCA = 1.6. Lt. ICA/CCA = .8. Prox ECA 88.3/12.4 cm/sec. Prox ECA 110.1/9.7 cm/sec. Rt. Vert. 63.0/15.1 cm/sec. Lt. Vert. 36.2/9.7 cm/sec. Right Extracranial There is homogeneous, smooth atherosclerotic plaque noted in the right common carotid artery. There is homogeneous, smooth atherosclerotic plaque noted in the right internal carotid artery. There is intimal thickening but no significant atherosclerotic plaque noted in the right external carotid artery. Antegrade flow is noted in the right vertebral artery. Left Extracranial There is homogeneous, smooth atherosclerotic plaque noted in the left common carotid artery. There is homogeneous, smooth atherosclerotic plaque noted in the left internal carotid artery. The left internal carotid artery is very tortuous. There is heterogeneous, irregular atherosclerotic plaque noted in the left external carotid artery. Antegrade flow is noted in the left vertebral artery. Procedure Carotid Duplex [id number]. This is a Carotid Duplex examination using B-mode, color flow and specral Doppler. The exam was diagnostic. Exam performed in department. VL/Carotid Duplex Ultrasound Interpretation Summary Moderate (50-69%) stenosis right extracranial internal carotid. Mild (<50%) stenosis left extracranial internal carotid. Patent and antegrade vertebrals bilaterally. Ordering Physician: Jolene Smith Performed By: Jeff Cruz RVT
== END | disposition home or self-care (01) ==
LOC: CVS 13:49
PROVIDERS: PCP Internal Medicine; Referring Provider Internal Medicine; Visit Provider Internal Medicine
DX: R47.81 Slurred speech (principal)
CPT/HCPCS: 93880

== ENCOUNTER 2023-05-04 08:48 | Emergency (ER) | payer OTHER, SELFPAY ==
[2023-05-04 08:49] VITALS: BP 196/84; PULSE 72; RESP 16; TEMP 36.6; O2SAT 96; BMI 32.8
--- NOTE | 2023-05-04 09:07 | EKG12_ITS ---
Test Reason : CP Blood Pressure : / mmHG Vent. Rate : 070 BPM Atrial Rate : 070 BPM P-R Int : 158 ms QRS Dur : 108 ms QT Int : 408 ms P-R-T Axes : 016 -30 013 degrees QTc Int : 440 ms Normal sinus rhythm Left axis deviation Incomplete right bundle branch block Abnormal ECG Confirmed by BOB STILL, DAIN ([id number]), sports editor DAMION MARISCAL ([id number]) on 05/09/2023 6:57:21 AM Referred By: JERRICA Confirmed By:LINDA ROJAS MD
--- NOTE | 2023-05-04 09:07 | EDS_ITS ---
HPI History of Present Illness Chief Complaint: Chest Pain Informant: patient and family Narrative Narrative: Patient is a 77-year-old male with reported history of recent stroke (mini stroke per family) presenting with episode of chest pain. Patient tells me that he felt like he was in his usual state of health yesterday and this morning. He was at work when suddenly he felt sharp pain on his left chest that lasted for less than a minute. While this was going on he just felt a little dizzy . He denies feeling foggy or dizzy over the past few days. Notes his blood pressure is elevated but he thinks it might be associated with being in the hospital ri ght now. Does not normally take any blood pressure medicine. Family at the bedside states that he just received results about MRI results from his recent stroke yesterday and has appointment to see his PCP, Dr. Smith, tomorrow and was told that he is high risk for having another stroke. Patient currently denies any acute stroke symptoms. He notes his initial stroke involve numbness around his mouth and tingling in his right hand which he is continues to have mild symptoms of. He denies any shortness of breath, cough, leg swelling, nausea, vomiting, fever or chills. Denies any acute vision changes. Notes he did have a cold at the beginning the month and right now only has a slight runny nose. No other complaints or concerns verbalized at this time. [facility] Medical History (Updated 05/04/23 @ 11:[address] Sangeeta Figueroa, ) Acute calculous cholecystitis Home Medications garlic 100 mg tablet 100 mg PO DAILY overall health 06/22/17 [History Last Taken 06/21/17 17:00] hydrocodone-acetaminophen 5-325mg 5mg-325mg 1 tab PO Q6H PRN PRN Pain 3 days #10 tabs 09/12/17 [Rx Last Taken Unknown] aspirin 81 mg capsule 81 mg PO DAILY 05/04/23 [History Last Taken Unknown] lisinopril 10 mg tablet 10 mg PO BID #60 tabs 05/04/23 [Rx Last Taken Unknown] Allergy/AdvReac Type Severity Reaction Status Date / Time No Known Allergies Allergy Verified 05/04/23 08:52 Family History Brother Colon cancer Father Heart disease Surgical History S/P appendectomy S/P cholecystectomy S/P tonsillectomy Status post left knee replacement Social History Smoking Status: Never smoker second hand exposure: No alcohol intake: never substance use type: does not use caffeine: No what type of physical activity do you participate in: none frequency: does not exercise seatbelt use: always ROS ROS ED Constitutional Constitutional ED: Denies chills or fever(s) Eyes Eyes: Denies blurry vision or change in vision ENT ENT ED: Reports rhinorrhea; Denies sore throat Cardiovascular Cardiovascular: Reports as per HPI and chest pain; Denies palpitations Respiratory/Chest Respiratory/Chest: Denies cough, dyspnea or dyspnea on exertion Gastrointestinal Gastrointestinal: Denies abdominal pain, nausea or vomiting Genitourinary Genitourinary ED: Denies dysuria Musculoskeletal Musculoskeletal: Denies arthralgias or myalgias Integumentary Denies rash Neurologic Neurologic: Denies headache(s), paresthesias or weakness Psychiatric Psychiatric: Denies anxiety EXAM Physical Exam Const Vital Signs: 05/04/23 08:49 05/04/23 08:53 05/04/23 09:30 Temperature 98 F Temperature Source Oral Pulse Rate 72 Respiratory Rate 16 Respiratory Effort Normal Non-Labored Blood Pressure 196/84 H Blood Pressure Mean 121 Pulse Ox 96 97 Oxygen Delivery Method Room Air Room Air 05/04/23 10:37 05/04/23 11:14 05/04/23 12:00 Temperature Temperature Source Pulse Rate 65 62 99 Respiratory Rate 18 16 21 H Respiratory Effort Blood Pressure 190/92 H 157/108 H 122/85 H Blood Pressure Mean 124 124 97 Pulse Ox 94 Oxygen Delivery Method Room Air Room Air Positive well nourished and well developed General Appearance ED: well developed and NAD HEENT Reports moist mucous membranes Eyes PERRL and EOMs intact bilaterally Neck supple and no JVD Chest Wall inspection of chest normal and palpation of chest normal Resp normal respiratory effort and clear to auscultation bilaterally Cardio regular rate, regular rhythm and no murmurs GI normal to inspection, nondistended, normoactive bowel sounds and soft to palpation Extremity normal to inspection General Extremety ED: Negative for edema General Extremity: Negative for edema Neuro oriented x3, CN's II-XII intact bilaterally and no sensory deficits noted Sensorium / Orientation: awake Motor Exam: strength 5/5 throughout; Negative for general weakness Psych mental status grossly normal Skin no rashes or lesions noted and no wounds [facility] Narrative Medical decision making narrative: Patient evaluated for an acute episode of chest pain. Is since resolved he is currently chest pain-free. I will obtain cardiac workup including delta high- sensitivity troponin. In addition he reports he had a recent stroke and discussed the results yesterday. I reviewed outpatient records that show he had an MRI on 04/25 which did show an acute left ceramic lacunar infarct as well as carotid duplex which showed moderate stenosis of the right intracranial internal carotid and mild stenosis of the left extracranial internal carotid. Once results are back we will contact patient's PCP. Initial cardiac workup largely normal. Patient is normal high since he troponin of 8 however we will repeat and obtain a delta. CBC and BMP is otherwise normal. No signs of AMANUEL signs of endorgan damage secondary to hypertension. Patient was given aspirin and while he remains hypertensive in the ER (on my rechecks systolics of 170s) is given a dose of Norvasc. Blood pressure is responsive is now 157/108. Will continue to monitor. Case discussed with his physician, Dr. Smith, who was still like to see the patient the office tomorrow. She recommends starting him on lisinopril 10 mg twice daily and continue his daily aspirin. History & Record Review Additional record(s) reviewed:: Prior outpatient record (See [facility], outpatient MRI and carotid duplex results) Lab Data Labs: Laboratory Results - last 24 hr 05/04/23 05/04/23 08:59 11:36 WBC 6.9 RBC 5.26 Hgb 15.8 Hct 48.0 MCV 91.3 MCH 30.0 MCHC 32.9 RDW Std Deviation 40.7 RDW Coeff of Chelsie 12.3 Plt Count 218 MPV 10.1 Immature Gran % (Auto) 0.600 Neut % (Auto) 55.9 Lymph % (Auto) 31.9 [place] % (Auto) 7.7 Eos % (Auto) 3.0 Baso % (Auto) 0.9 Absolute Neuts (auto) 3.9 Absolute Lymphs (auto) 2.21 Nucleated RBC % 0 Sodium 139 Potassium 3.8 Chloride 107 Carbon Dioxide 30.0 Anion Gap 2 L BUN 10 Creatinine 0.85 Estim Creat Clear Calc 78.72 Est GFR (MDRD) Af Amer 112 Est GFR (MDRD) Non-Af 92 BUN/Creatinine Ratio 11.7 Glucose 97 Calcium 9.5 Troponin I High Sens 8 10 Radiography Diagnostic Testing: Clinical Impression(s) from Imaging Studies Chest X-Ray 05/04/23 09:35 IMPRESSION: Hyperinflation. No acute abnormality is seen. Electronically Signed: Richard Greenberg MD at 10:51 EST , Rhythm Strip Rhythm Strip: Sinus Rhythm Rate: 70 Ectopy: None EKG Initial EKG: Attestation: I personally reviewed and interpreted this EKG as follows: Interpretation: Sinus Rhythm Comments: Normal sinus rhythm rate of 70 bpm Left axis deviation Normal intervals Normal ST segments Incomplete right bundle branch block present Prior EKG tracings: available for review Prior: Unchanged Discharge Plan Triage Chief Complaint: Chest Pain ED Provider: Sangeeta Figueroa Dx/Rx/DC Orders Clinical Impression: Chest pain, Hypertension Instructions: ED Chest Pain, Uncertain Cause, ED Hypertension New Begin Treatment Prescriptions: New lisinopril 10 mg tablet 10 mg PO BID Qty: 60 0RF No Action garlic 100 MG tablet 100 mg PO DAILY hydrocodone-acetaminophen 1 TABLET tablet 1 tab PO Q6H PRN PRN (Reason: Pain) 3 Days Qty: 10 0RF aspirin 81 mg capsule 81 mg PO DAILY Primary Care Provider: Jolene Smith Referrals: Jolene Smith DO [Primary Care Provider] - Activity Restrictions/Additional Instructions: Continue taking 81 mg aspirin. You have been started on a new blood pressure medicine (lisinopril 10 mg twice a day). Please follow-up tomorrow as scheduled with your primary care doctor. Disposition Disposition: Home, Self Care
[2023-05-04 09:30] VITALS: O2SAT 97
[2023-05-04] MEDS: Aspirin 81 MG TAB.CHEW 324 MG PO (09:31)
--- NOTE | 2023-05-04 09:35 | RAD_ITS ---
STUDY: X-RAY CHEST REASON FOR EXAM: Male, 77 years old. CHEST PAIN TECHNIQUE: PA and lateral views of the chest. COMPARISON: Comparison is made with prior study dated June 22, 2017. FINDINGS: There is hyperinflation of the lungs consistent with chronic obstructive lung disease (COPD). There is no demonstrated pleural abnormality. There is mild cardiac enlargement. Normal mediastinum and gama. Normal visualized pulmonary arteries. There is atherosclerotic calcification of the aortic arch with tortuosity. There are diffuse degenerative changes of the visualized thoracic spine. There is degenerative osteoarthritis of the bilateral shoulders. There is no demonstrated abnormality of the visualized soft tissue structures of the upper abdomen. RAD/Chest PA and Lateral IMPRESSION: Hyperinflation. No acute abnormality is seen. Electronically Signed: Richard Greenberg MD at 10:51 EST ,
[2023-05-04 09:42] LABS: Absolute Lymphocyte Count 2.21 X10^3/uL (0.83-4.51); Absolute Neutrophil Count 3.9 X10^3/uL (2.0-7.7); Basophil# 0.06 X10^3/uL; Basophil% 0.9 % (0-1); Eosinophil# 0.21 X10^3/uL; Hemoglobin 15.8 g/dL (13.0-16.5); Lymphocyte # 2.21 X10^3/ul (0.83-4.51); Lymphocyte % 31.9 % (19-41); Mean Corp Hgb Conc 32.9 g/dL (32-36); Mean Corpuscular Volume 91.3 fL (80-94); Mean Platelet Vol. 10.1 fl (6.2-12.0); Monocyte# 0.53 X10^3/uL; Monocyte% 7.7 % (0-10); NRBC Flagged by Analyzer 0 % (0-5); Neutrophil # 3.87 X10^3/uL (2.7-7.7); Neutrophil % 55.9 % (47-70); Platelet Count 218 K/mm3 (150-450); RBC Distribution Width CV 12.3 % (11.6-14.6); RBC Distribution Width SD 40.7 fl (35.1-43.9); Red Blood Count 5.26 M/mm3 (4.6-6.2); White Blood Count 6.9 K/mm3 (4.4-11.0)
[2023-05-04 09:45] LABS: Anion Gap 2 (5-15); BUN 10 mg/dL (7-18); BUN/Creat Ratio 11.7 RATIO (10-20); Calcium,Total 9.5 mg/dL (8.5-10.1); Chloride 107 mmol/L (98-107); Creatinine, Serum 0.85 mg/dL (0.70-1.30); EST Glomerular Filtration Rate 92 mL/min (>60); Est Glom Filt Rate - Afr Amer 112 mL/min (>60); Estimated Creatinine Clearance 78.72 ml/min; Glucose 97 mg/dL (74-106); Potassium 3.8 mmol/L (3.5-5.1); Sodium Level 139 mmol/L (136-145); Troponin-I HS (w/2H Reflex) 8 pg/mL (3.0-78.0)
[2023-05-04] MEDS: amLODIPine 5 MG Tablet PO (10:16)
[2023-05-04 10:37] VITALS: BP 190/92; PULSE 65; RESP 18; O2SAT 94
[2023-05-04 11:14] VITALS: BP 157/108; PULSE 62; RESP 16
[2023-05-04 11:25] LABS: Reflex Troponin-HS? (from REC) Y
[2023-05-04 11:58] LABS: Troponin-I HS 10 pg/mL (3.0-78.0)
[2023-05-04 12:00] VITALS: BP 122/85; PULSE 99; RESP 21
[2023-05-04 12:37] VITALS: BP 162/85; PULSE 62; RESP 17; TEMP 36.8; O2SAT 93
== END 2023-05-04 12:42 | disposition home or self-care (01) ==
PROVIDERS: Emergency Provider Emergency Medicine; PCP Internal Medicine; Visit Provider Emergency Medicine
DX: R07.9 Chest pain, unspecified (principal); I10 Essential (primary) hypertension; Z86.73 Personal history of transient ischemic attack (TIA), and cerebral infarction without residual deficits; Z90.49 Acquired absence of other specified parts of digestive tract; Z96.652 Presence of left artificial knee joint
CPT/HCPCS: 71046; 80048; 84484; 85025; 93005; 99285; A4216

== ENCOUNTER → 2023-05-23 | Outpatient (CLI) | payer SELFPAY, OTHER ==
--- NOTE | 2023-05-23 13:37 | ECHOCS_ITS ---
Reason For Study: SLURRED SPEECH Procedure This was a 2D Doppler, Color Flow transthoracic echocardiogram. The study was technically difficult. Contrast injection was performed. Exam performed in department. Left Ventricle Normal LV size. Mild concentric left ventricular hypertrophy. Left ventricular systolic function is normal. The estimated ejection fraction is 65 %. Stage 1 diastolic dysfunction. No regional wall motion abnormalities noted. Right Ventricle Normal RV size. Normal systolic function. Atria The left atrium is mildly enlarged. Normal right atrium. Bubble contrast study negative for right to left interatrial shunt. Mitral Valve Mild diffuse mitral valve thickening. Mild-Moderate (1-2+) eccentric mitral valve insufficiency. Tricuspid Valve Normal tricuspid valve. Aortic Valve Trisinus/trileaflet aortic valve. Pulmonic Valve Normal pulmonic valve. Great Vessels Mildly dilated aortic root. The pulmonary artery is normal size. Inferior vena cava collapse with respiration. Pericardium/Pleural No pericardial effusion. Medication 22 gauge I.V. with prn adaptor inserted into right arm. Diluted definity 3.0ml given slow IV push to enhance endocardial definition. Performed a rapid injection of agitated mix of 9 cc saline and 1cc air to assess for atrial septal defect. MMode/2D Measurements & Calculations LVIDd: 5.5 cm IVSd: 1.3 cm Ao root diam: 3.8 cm LVIDs: 3.4 cm LVPWd: 1.3 cm RVDd: 3.3 cm FS: 38.4 % LAV(MOD-bp): 73.9 ml LVAd ap4: 37.4 cm2 LVAd ap2: 26.8 cm2 LAV(MOD-bp) Indexed: 36.4 ml/m2 LVLd ap4: 8.7 cm LVLd ap2: 8.1 cm LAV(MOD-sp2): 80.7 ml EDV(MOD-sp4): 137.0 ml EDV(MOD-sp2): 75.0 ml LAV(MOD-sp4): 68.1 ml EDV(sp4-el): 136.2 ml EDV(sp2-el): 75.5 ml LVAs ap4: 18.7 cm2 LVAs ap2: 16.3 cm2 LVLs ap4: 6.4 cm LVLs ap2: 6.9 cm ESV(MOD-sp4): 45.3 ml ESV(MOD-sp2): 32.7 ml ESV(sp4-el): 46.2 ml ESV(sp2-el): 32.8 ml EF(MOD-sp4): 66.9 % EF(MOD-sp2): 56.3 % EF(sp4-el): 66.1 % SV(MOD-sp4): 91.7 ml SV(MOD-sp2): 42.2 ml SV(sp4-el): 90.0 ml LA A4 area: 21.0 cm2 LA dimension(2D): 4.7 cm Time Measurements MV dec time: 0.29 sec Doppler Measurements & Calculations MV E max cortez: 62.9 cm/sec Lat Peak E' Cortez: 8.5 cm/sec Med Peak E' Cortez: 9.1 cm/sec MV A max cortez: 92.6 cm/sec E/E' lat: 7.4 E/E' med: 6.9 MV E/A: 0.68 MV V2 max: 104.1 cm/sec MV P1/2t max cortez: 79.6 cm/sec Ao V2 max: 134.7 cm/sec MV max P.3 mmHg MV P1/2t: 56.3 msec Ao max P.3 mmHg MV V2 mean: 52.6 cm/sec Ao V2 mean: 90.2 cm/sec MV mean P.3 mmHg MV dec slope: 413.9 cm/sec2 Ao mean P.8 mmHg MV V2 VTI: 29.0 cm MVA(P1/2t): 3.9 cm2 Ao V2 VTI: 31.4 cm AV (velocity ratio): 0.61 LV V1 max: 80.8 cm/sec PA V2 max: 72.4 cm/sec LV V1 max P.6 mmHg PA V2 mean: 52.4 cm/sec LV V1 mean P.4 mmHg LV V1 mean: 56.1 cm/sec LV V1 VTI: 19.2 cm ECHO/Echo Complete W/ Contrast Interpretation Summary Normal LV size. Mild concentric left ventricular hypertrophy. Left ventricular systolic function is normal. The estimated ejection fraction is 65 %. Stage 1 diastolic dysfunction. Bubble contrast study negative for right to left interatrial shunt. Mild-Moderate (1-2+) eccentric mitral valve insufficiency. Ordering Physician: Jolene Smith Referring Physician: Jolene Smith Performed By: Abimbola Jefferson, FELICIACS, RVT
== END | disposition home or self-care (01) ==
LOC: CVS 13:33
PROVIDERS: PCP Internal Medicine; Referring Provider Internal Medicine; Visit Provider Internal Medicine
DX: R47.81 Slurred speech (principal); Q89.9 Congenital malformation, unspecified; I05.9 Rheumatic mitral valve disease, unspecified
CPT/HCPCS: 93306; Q9957; A4216; C8929

== ENCOUNTER 2023-06-07 14:23 | Outpatient (RCR) | payer OTHER, SELFPAY ==
--- NOTE | 2023-06-07 16:16 | HP.OTEVAL_ITS ---
Patient's Visit Information Visit Information Visit Information: GEORGIA MCKEON is a 77 year old M, referred to Occupational Therapy by Dr. Jolene Smith DO, with a diagnosis of CVA. Date of Evaluation: 06/07/23 Occupational Therapist: Natalie Ritter Subjective Subjective: pt with CVA dx first week of april pt is uncertain of exact date. 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 pt does not report any concerns with ability to work at this time. pt did not receive any prior therapy after stroke. pt reports a little bit of tingling on R side of mouth. he initially had tingling of hands however does not anymore. pt is R hand dominant and reports his legibility has suffered a little bit however is still legible. Objective Objective/Observation: pt arrives this date with family members as well as daughter feeling well overall ROM Shoulder: wfl Elbow: wfl Forearm: wfl Wrist: wfl CMC: wfl MP: wfl IP: wfl Radial Abduction: wfl Palmar Abduction: wfl Opposition: wfl MP: wfl PIP: wfl DIP: wfl ROM Comments: all gross motor FMC movements within normal limits Strength Shoulder: L 33 pounds L 39 pounds Elbow: L 32 R 32 pounds Air Deodorizer Servicer: L 60 R 40 Lateral Pinch: L 10 R 10 Tripod Pinch: L 10 R 8 Strength Comments: decreased strength of R grasp noted Edema Other: none noted at eval Sensation Sensation Comments: no difference in either arm no numbness or tingling reported Nine Hole Peg Right: 25 sec Left: 20 sec Quick DASH-Disab of Arm,Shoulder& Hand Quick DASH Score: 9.0900 Rehabilitation General Assessment: This male pt presents s/p CVA in Apr exact date unknown. Pt initially had impairments of strength as well as occ numbness and tingling which has subsided and no complaints at this time. pt is able to perform ADL as well as IADL and work related activities without difficulty at this time. Rehabilitation Potential: Good Anticipated Interventions Other Interventions: eval only performed this date. pt does demonstrate limitation of R hand rn first assistant strength as well as slight difference in FMC dexterity of R hand however pt does not notice this during his day to day tasks or work releated activities. Pt and family decide they would like to complete a home program for strength and dextery versus coming in for therapy due to little to no impact on daily living / work related activities. Visit Plan Frequency: eval only Duration: eval only General Plan: eval only performed at this time no POC at this time. home program provided this date for ongoing strength and FMC at home per pt and family request TEXT: Thank you for the opportunity to evaluate your patient. For Medicare and Medicare HMO plans, please review the plan of care and approve it. It will need to be FAXED BACK to us at [phone] for Medicare purposes. Please let me know if there are questions or concerns regarding this plan of care. Physician Signature: Date:
--- NOTE | 2023-06-07 19:14 | HP.SP.EV_ITS ---
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 Pt was accompanied by his and daughter. Pt noted some minor right sided weakness and noted some speech problems after waking up in the beginning of April. A few days later, he reported this to his and they sought out medical attention. Pt was evaluated by his PCP then referred to him to the hospital for additional testing. Pt was informed that he had a TIA, but did not required overnight admission. 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 Smoking Status: Never smoker Diagnosis Diagnosis: CVA (TIA) Pain Is pain an issue with your current prescribed condition?: No Personal Preferred language: Lithuanian Patient Allergies Allergies Allergies: Allergies No Known Allergies Allergy (Verified 05/04/23 08:52) Subjective Dysphagia Comments Patient Report: -: Pt denied experiencing difficulty with eating and drinking post cva. Pt's family agreed with his assessment of his current level. No further testing warranted. Subjective Oral Motor Subjective Facial Drooping: Right Comments Comments: No current difficulties noted. Pt noted numbness of the right side of his face/body after the CVA, which has since subsided. Subjective Cog/Ling/Com Subjective Cognitive/Linguistic/Communication: Pt reports slight difficulty remembering someone's name since the cva and pt's family reports that Alfa takes slightly longer to respond. These deficits were described to be minor with no impact on ADL's. No difficulty noted during conversation during the assessment. BDAE-3 [place] Diagnostic Aphasia Examination BDAE-3 Administered: Yes BDAE-3: The BDAE-3 assesses communication in the areas of: conversational and expository speech, auditory comprehension, oral expression, reading and writing. Date: 06/07/23 Severity Level: 5 Level Detail: Minimal discernible speech handicap; the patient may have subjective difficulties that are not obvious to the listener. Rating Scale Profile of speech character Articulation Agility: 7 Detail: Facility at phoneme and syllable level ranges from 1 being unable to form speech sounds to 7 being never impaired Phrase length: 7+ Detail: Longest occasional uninterrupted word runs Grammatical form: 7 Detail: Variety of grammatical constructions; use of grammatical mophemes: 1=nosyntactic word groupings ranging to 7 being normal range of syntax; normal facility with grammatical words Melodic Line (Prosody): 7 Detail: 1=word b word or aprosodic speech ranging to 7 being normal speech tristan Paraphasia in running speech: 7 Detail: 1 present in evrey utterance ranging to 7 s absent Word finding relative to fluency: 7 Detail: 1 is fluent but empty speech ranging to 7 as output primarily content words Summary Profile Conversation/Speech Conversational/Expository Speech Percentile: 100 Simple social responses Percentile: 100 Summary Profile Auditory Comprehension Auditory Comprehension Percentile: 100 Basic word discrimination Percentile: 100 Commands Percentile: 100 Complex Ideational Material Percentile: 70 Summary Profile Recitation Recitation automatized sequences Percentile: 100 Summary Profile Repitition Repetition Percentile: 100 Words Percentile: 60 Sentences Percentile: 100 Summary Profile Naming Naming Percentile: 100 Responsive Naming Percentile: 100 [place] Naming Test Percentile: 100 Special Categories Percentile: 100 Summary Profile Paraphasia Phonemic example- Ho for [place]: none Verbal examples - for : none Neologistic - example planker for comb: none Multi-word: none Summary Profile Reading Matching cases and scripts: 100 Number matchin Picture - word matchin Oral word readin Oral sentence readin Oral sentence comprehension: 100 Sentences/Paragraph comprehension: 100 Summary Profile Writing Form: 100 Letter choice: 100 Motor faclility: 100 Primer words: 100 Regular phonics: 100 Common irregular words: 100 Written picture namin Narrative writin BDAE-3 Comments Notes: -: Pt did not show signs of speech, language or cognitive deficits during the [place] naming test. Pt scored lower (missing 1 pt) on 2 subtests which may have been due to speech errors at baseline (/th/ and blends) and a hearing impairment. Subjective Dysarthria/Motor Subjective Subjective: Pt denied experiencing slurred speech. No slurred speech noted during the evaluation. Reference: Neuro-QoL instrument HDQLIFE - Speech Difficulties In the past 7 days. It was difficult for other people to understand me.: Never Is was difficult to speak clearly?: Never In the past 7 days.. How often did you limit your social activites because you had difficulty speaking?: Never In the past 7 days... I had trouble speaking.: A little bit I was frustrated by my speech difficulties.: Not at all How much DIFFICULTY do you have... ...saying what you want to say?: A little difficulty Score HDQLIFE Speech Difficulties Raw Score: 8 HDQLIFE Speech Difficulties T - Score: 47 Radiation Oncology Patient Plan Plan Plan: No therapy warranted at this time. Will reassess with a script from a physician if pt's status changes. Recommendations Treatment Warranted: No Education Patient has Indicated that the Following Identified Educational Needs: None The Patient has indicated that they have no educational or learning abilities that may effect their care.: Yes Patient Instruction Patient Education: Diagnosis, Treatment Plan and Home Exercise Program Other Education: no tx warranted. Pt and Family agreed with the POC. Person Taught: Patient and Family Teaching Method: Discussion Response to teaching: Verbalize understanding
== END 2023-06-07 19:00 | disposition home or self-care (01) ==
LOC: OT 14:23
PROVIDERS: PCP Internal Medicine; Referring Provider Internal Medicine; Visit Provider Internal Medicine
DX: I69.328 Other speech and language deficits following cerebral infarction (principal); I69.398 Other sequelae of cerebral infarction
CPT/HCPCS: 96105; 97165; 97530